=== PATIENT | male | born 1985 | race Two or more races ===

== ENCOUNTER 2017-03-13 08:50 | Inpatient (IN) | payer OTHER ==
[2017-03-13 10:34] VITALS: BMI 28.5
--- NOTE | 2017-03-13 12:11 | HP ---
COWS - Scale Resting Pulse: 0= [place] 80 or Below Sweatin=Flushed/Facial Moisture Restless Observation: 1= Difficult to Sit Still Pupil Size: 2= Moderately Dilated Bone or Joint Aches: 1= Mild Discomfort Runny Nose/ Eye Tearin= Runny Nose/Eyes GI Upset > 30mins: 1= Stomach Cramp Tremor Observation: 2= Slight Tremor Visible Yawning Observation: 1= 1-2x During Session Anxiety or Irritability: 2=Irritable/Anxious Goose Flesh Skin: 0=Smooth Skin COWS Score: 14 Admission ROS S - HPI Chief Complaint: Withdrawal sx. Allergies/Adverse Reactions: Allergies Allergy/AdvReac Type Severity Reaction Status Date / Time No Known Allergies Allergy Verified 03/13/17 10:53 History of Present Illness: 32 y/o man with a long hx. of drug dependence is admitted for detox. Pt. denies previous detox, denies ever being drug free. Exam Limitations: No Limitations - Ebola screening Have you traveled outside of the country in the last 21 days: No (N) Have you had contact with anyone from an Ebola affected area: No Have you been sick,other than usual withdrawal symptoms: No Do you have a fever: No - Review of Systems Constitutional: Diaphoresis EENT: reports: Nose Congestion Respiratory: reports: Cough (off & on) Cardiac: reports: No Symptoms Reported GI: reports: Nausea, Abdominal cramping : reports: No Symptoms Reported Musculoskeletal: reports: Joint Pain Integumentary: reports: Sweating Neuro: reports: Seizure (related to smoking K2), Tremors Endocrine: reports: No Symptoms Reported Hematology: reports: No Symptoms Reported Psychiatric: reports: No Sypmtoms Reported Other Systems: Reviewed and Negative Patient History - Patient Medical History Hx Anemia: No Hx Asthma: No Hx Chronic Obstructive Pulmonary Disease (COPD): No Hx Cancer: No Hx Cardiac Disorders: No Hx Congestive Heart Failure: No Hx Hypertension: No Hx Hypercholesterolemia: No Hx Pacemaker: No HX Cerebrovascular Accident: No Hx Seizures: No Hx Dementia: No Hx Diabetes: No Hx Gastrointestinal Disorders: No Hx Liver Disease: No Hx Genitourinary Disorders: No Hx Sexually Transmitted Disorders: No Hx Renal Disease (ESRD): No Hx Thyroid Disease: No Hx Human Immunodeficiency Virus (HIV): No Hx Hepatitis C: No Hx Depression: Yes Hx Suicide Attempt: No Hx Schizophrenia: Yes - Patient Surgical History Past Surgical History: No - PPD History Previous Implant?: Yes Documented Results: Negative w/o proof Implanted On Prior R Admission?: No PPD to be Administered?: Yes - Smoking Cessation Smoking history: Current every day smoker Have you smoked in the past 12 months: Yes Aproximately how many cigarettes per day: 7 Hx Chewing Tobacco Use: No Initiated information on smoking cessation: Yes 'Breaking Loose' booklet given: 03/13/17 - Substance & Tx. History Hx Alcohol Use: Yes (once a week 3 cans of beer of 12 oz.) Hx Substance Use: Yes Substance Use Type: Cocaine, Heroin, Marijuana Hx Substance Use Treatment: No - Substances Abused Heroin Route: Inhalation Frequency: Daily Amount used: 2 BAGS Age of first use: 29 Date of Last Use: 03/11/17 Crack Route: Smoking Frequency: Daily Amount used: $200 Age of first use: 31 Date of Last Use: 03/12/17 K2 Route: Smoking Frequency: Daily Amount used: 1 blunt Age of first use: 27 Date of Last Use: 03/13/17 Family Disease History - Family Disease History Family History: Denies Admission Physical Exam [facility] - Vital Signs Vital Signs: Vital Signs - 24 hr 03/13/17 10:22 Temperature 97.6 F Pulse Rate 59 L Respiratory 18 Rate Blood Pressure 111/62 - Physical General Appearance: Yes: Tremorous, Irritable, Sweating, Anxious HEENTM: Yes: Nasal Congestion, Rhinorrhea Respiratory: Yes: Chest Non-Tender, Lungs Clear, Normal Breath Sounds Neck: Yes: Supple Breast: Yes: Breast Exam Deferred Cardiology: Yes: Regular Rhythm, Regular Rate, S1, S2 Abdominal: Yes: Normal Bowel Sounds, Non Tender, Soft Genitourinary: Yes: Within Normal Limits Back: Yes: Within Normal Limits Musculoskeletal: Yes: Within Normal Limits Extremities: Yes: Tremors Neurological: Yes: Fully Oriented, Alert Integumentary: Yes: Diaphoresis Lymphatic: Yes: Within Normal Limits - Diagnostic (1) Opioid dependence with withdrawal Current Visit: Yes Status: Acute (2) Cannabis dependence, uncomplicated Current Visit: Yes Status: Acute (3) Cocaine dependence, uncomplicated Current Visit: Yes Status: Acute Cleared for Admission [facility] - Detox or Rehab [facility] Level of Care: Medically Managed Detox Regimen/Protocol: Methadone [facility] Breath Alcohol Content Breath Alcohol Content: 0 Urine Drug Screen - Results Drug Screen Negative: No Urine Drug Screen Results: THC-Marijuana, KAREN-Cocaine, OPI-Opiates
[2017-03-13] MEDS ORDERED: P-EPHED 60MG/TRIPROLIDI 2.5MG TABLET PO PRN (12:20)
[2017-03-13] MEDS ORDERED: MAGNESIUM HYDROX 2400MG/30ML ORAL SUSPENSION 30 ML CUP PO PRN (12:20)
[2017-03-13] MEDS ORDERED: MAGNESIUM CITRATE 300 ML BOTTLE PO PRN (12:20)
[2017-03-13] MEDS ORDERED: IBUPROFEN 400 MG TABLET (FP) PO PRN (12:20)
[2017-03-13] MEDS ORDERED: guaiFENesin/D-METHORPHAN HB 10 ML UNIT-DOSE CUPS PO PRN (12:20)
[2017-03-13] MEDS ORDERED: ACETAMINOPHEN 325 MG TABLET (FP) PO PRN (12:20)
[2017-03-13] MEDS ORDERED: MAG HYDROX/AL HYDROX/SIMETH 30 ML UNIT-DOSE CUP PO PRN (12:20)
[2017-03-13] MEDS ORDERED: MENTHOL/PHENOL 1 EACH UD MM PRN (12:20)
[2017-03-13] MEDS ORDERED: LOPERAMIDE HCL 2 MG CAPSULE PO PRN (12:20)
[2017-03-13] MEDS ORDERED: METHADONE HCL 10 MG TABLET (FOR DETOX USE ONLY) PO ONE ×3 (12:29→23:00)
[2017-03-13] MEDS: NICOTINE 21 MG/24 HOURS TOPICAL PATCH TD SCH (15:45)
[2017-03-13] MEDS: NICOTINE POLACRILEX 2 MG GUM BC PRN (15:54)
[2017-03-13 18:16] LABS: URINE APPEARANCE SLCLOUDY; URINE BILIRUBIN NEGATIVE (NEGATIVE); URINE BLOOD NEGATIVE (NEGATIVE); URINE COLOR DKYELLOW; URINE GLUCOSE (UA) NEGATIVE (NEGATIVE); URINE KETONE NEGATIVE (NEGATIVE); URINE LEUK ESTERASE NEGATIVE (NEGATIVE); URINE NITRITE NEGATIVE (NEGATIVE); URINE PROTEIN NEGATIVE (NEGATIVE)
[2017-03-13] MEDS: diazePAM 5 MG TABLET PO PRN (19:25)
[2017-03-13] MEDS: THIAMINE HCL 100 MG TABLET (FP) PO SCH (22:38)
[2017-03-13 23:04] LABS: URINE LEUK ESTERASE Negative (NEGATIVE)
[2017-03-14] MEDS: diazePAM 5 MG TABLET PO PRN ×4 (03:06→22:34)
[2017-03-14 09:45] LABS: MCH 29.7 pg (25.7-33.7); MEAN CELL VOLUME 87.4 fl (80-96); MEAN PLT VOLUME 10.2 fl (7.5-11.1); PLATELET COUNT 233 K/MM3 (134-434); RDW 13.1 % (11.9-15.9); WHITE BLOOD COUNT 7.3 K/mm3 (4.0-10.0)
[2017-03-14] MEDS ORDERED: METHADONE HCL 10 MG TABLET (FOR DETOX USE ONLY) PO ONE (10:00)
[2017-03-14 10:14] LABS: ALBUMIN 4.2 g/dl (3.4-5.0); ALK PHOS 65 U/L (45-117); ANION GAP 9 (8-16); BILIRUBIN,TOTAL 0.4 mg/dL (0.2-1.0); CALCIUM 8.7 mg/dL (8.5-10.1); CO2 26 mmol/L (21-32); CREATININE 0.9 mg/dL (0.7-1.3); GLUCOSE,RANDOM 91 mg/dL (74-106); SGOT/AST 14 U/L (15-37); SGPT/ALT 25 U/L (12-78); TOT PROT 7.3 g/dl (6.4-8.2)
--- NOTE | 2017-03-14 10:16 | PN ---
BHS COWS - Scale Resting Pulse: 0= [place] 80 or Below Sweatin=Flushed/Facial Moisture Restless Observation: 1= Difficult to Sit Still Pupil Size: 0= Normal to Room Light Bone or Joint Aches: 1= Mild Discomfort Runny Nose/ Eye Tearin= Runny Nose/Eyes GI Upset > 30mins: 2= Nausea/Diarrhea Tremor Observation of Outstretched Hands: 2= Slight Tremor Visible Yawning Observation: 1= 1-2x During Session Anxiety or Irritability: 2=Irritable/Anxious Goose Flesh Skin: 0=Smooth Skin COWS Score: 13 BHS Progress Note (SOAP) Subjective: Anxiety,tremors,sweating,interrupted sleep,restless Objective: 03/14/17 10:11 Vital Signs - 8 hr 03/14/17 03/14/17 03:30 07:14 Temperature 97 F L Pulse Rate 50 L Respiratory 18 16 Rate Blood Pressure 97/51 Laboratory Tests 03/13/17 03/14/17 15:50 06:05 WBC 7.3 RBC 4.82 Hgb 14.3 Hct 42.1 MCV 87.4 MCH 29.7 MCHC 34.0 RDW 13.1 Plt Count 233 MPV 10.2 Urine Color Dkyellow Urine Appearance Slcloudy Urine pH 6.0 Ur Specific [place] 1.027 Urine Protein Negative Urine Glucose (UA) Negative Urine Ketones Negative Urine Blood Negative Urine Nitrite Negative Urine Bilirubin Negative Urine Urobilinogen 2.0 Ur Leukocyte Esterase Negative labs noted Assessment: 03/14/17 10:16 Withdrawal sx. Plan: Continue detox
[2017-03-14] MEDS: PRENATAL VITAMINS W/ FOLIC ACID TABLET (FP) PO SCH (10:53)
[2017-03-14] MEDS: NICOTINE 21 MG/24 HOURS TOPICAL PATCH TD SCH (10:55)
[2017-03-14] MEDS: NICOTINE POLACRILEX 2 MG GUM BC PRN (13:28)
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
[2017-03-14] MEDS: BENZTROPINE MESYLATE 1 MG TABLET (FP) PO SCH (14:48)
[2017-03-14] MEDS ORDERED: carBAMazepine 200 MG TABLET PO SCH (22:00)
[2017-03-14] MEDS: hydrOXYzine PAMOATE 50 MG CAPSULE (FP) PO PRN (22:35)
[2017-03-14] MEDS: THIAMINE HCL 100 MG TABLET (FP) PO SCH (22:35)
[2017-03-15] MEDS: diazePAM 5 MG TABLET PO PRN ×5 (02:52→22:15)
--- NOTE | 2017-03-15 08:36 | EKG ---
Test Reason : Blood Pressure : / mmHG Vent. Rate : 045 BPM Atrial Rate : 045 BPM P-R Int : 134 ms QRS Dur : 092 ms QT Int : 432 ms P-R-T Axes : 054 012 029 degrees QTc Int : 373 ms SINUS BRADYCARDIA WITH SINUS ARRHYTHMIA OTHERWISE NORMAL ECG NO PREVIOUS ECGS AVAILABLE Confirmed by PAULO MILTON MD ([id number]) on 03/15/2017 8:36:01 AM Referred By: Confirmed By:PAULO MILTON MD
[2017-03-15] MEDS ORDERED: carBAMazepine 200 MG TABLET PO SCH (10:00)
[2017-03-15] MEDS ORDERED: METHADONE HCL 5 MG TABLET (FOR DETOX USE ONLY) PO ONE (10:00)
[2017-03-15] MEDS: PRENATAL VITAMINS W/ FOLIC ACID TABLET (FP) PO SCH (10:18)
[2017-03-15] MEDS: BENZTROPINE MESYLATE 1 MG TABLET (FP) PO SCH (10:19)
[2017-03-15] MEDS: NICOTINE 21 MG/24 HOURS TOPICAL PATCH TD SCH (10:20)
--- NOTE | 2017-03-15 12:42 | PN ---
BHS COWS - Scale Resting Pulse: 0= [place] 80 or Below Sweatin= Chills/Flushing Restless Observation: 1= Difficult to Sit Still Pupil Size: 0= Normal to Room Light Bone or Joint Aches: 1= Mild Discomfort Runny Nose/ Eye Tearin= Nasal Congestion GI Upset > 30mins: 1= Stomach Cramp Tremor Observation of Outstretched Hands: 2= Slight Tremor Visible Yawning Observation: 0= None Anxiety or Irritability: 2=Irritable/Anxious Goose Flesh Skin: 0=Smooth Skin COWS Score: 9 BHS Progress Note (SOAP) Subjective: general body ache sweating running nose anxiety Objective: 03/15/17 12:42 Vital Signs Temperature 98 F 03/15/17 10:34 Pulse Rate 59 L 03/15/17 10:34 Respiratory Rate 16 03/15/17 10:34 Blood Pressure 107/54 03/15/17 10:34 O2 Sat by Pulse Oximetry (%) Laboratory Last Values WBC 7.3 K/mm3 (4.0-10.0) 03/14/17 06:05 RBC 4.82 M/mm3 (4.00-5.60) 03/14/17 06:05 Hgb 14.3 GM/dL (11.7-16.9) 03/14/17 06:05 Hct 42.1 % (35.4-49) 03/14/17 06:05 MCV 87.4 fl (80-96) 03/14/17 06:05 MCH 29.7 pg (25.7-33.7) 03/14/17 06:05 MCHC 34.0 g/dl (32.0-35.9) 03/14/17 06:05 RDW 13.1 % (11.9-15.9) 03/14/17 06:05 Plt Count 233 K/MM3 (134-434) 03/14/17 06:05 MPV 10.2 fl (7.5-11.1) 03/14/17 06:05 Sodium 141 mmol/L (136-145) 03/14/17 06:05 Potassium 4.2 mmol/L (3.5-5.1) 03/14/17 06:05 Chloride 106 mmol/L (98-107) 03/14/17 06:05 Carbon Dioxide 26 mmol/L (21-32) 03/14/17 06:05 Anion Gap 9 (8-16) 03/14/17 06:05 BUN 7 mg/dL (7-18) 03/14/17 06:05 Creatinine 0.9 mg/dL (0.7-1.3) 03/14/17 06:05 Creat Clearance w eGFR > 60 (>60) 03/14/17 06:05 Random Glucose 91 mg/dL (74-106) 03/14/17 06:05 Calcium 8.7 mg/dL (8.5-10.1) 03/14/17 06:05 Total Bilirubin 0.4 mg/dL (0.2-1.0) 03/14/17 06:05 AST 14 U/L (15-37) L 03/14/17 06:05 ALT 25 U/L (12-78) 03/14/17 06:05 Alkaline Phosphatase 65 U/L (45-117) 03/14/17 06:05 Total Protein 7.3 g/dl (6.4-8.2) 03/14/17 06:05 Albumin 4.2 g/dl (3.4-5.0) 03/14/17 06:05 Urine Color Dkyellow 03/13/17 15:50 Urine Appearance Slcloudy 03/13/17 15:50 Urine pH 6.0 (5.0-8.0) 03/13/17 15:50 Ur Specific [place] 1.027 (1.001-1.035) 03/13/17 15:50 Urine Protein Negative (NEGATIVE) 03/13/17 15:50 Urine Glucose (UA) Negative (NEGATIVE) 03/13/17 15:50 Urine Ketones Negative (NEGATIVE) 03/13/17 15:50 Urine Blood Negative (NEGATIVE) 03/13/17 15:50 Urine Nitrite Negative (NEGATIVE) 03/13/17 15:50 Urine Bilirubin Negative (NEGATIVE) 03/13/17 15:50 Urine Urobilinogen 2.0 mg/dL (0.2-1.0) 03/13/17 15:50 Ur Leukocyte Esterase Negative (NEGATIVE) 03/13/17 15:50 RPR Titer Nonreactive (NONREACTIVE) 03/14/17 06:05 lab noted Assessment: 03/15/17 12:42 withdrawal sx Plan: continue detox
[2017-03-15] MEDS: THIAMINE HCL 100 MG TABLET (FP) PO SCH (22:14)
[2017-03-15] MEDS: hydrOXYzine PAMOATE 50 MG CAPSULE (FP) PO PRN (22:15)
[2017-03-16] MEDS ORDERED: METHADONE HCL 5 MG TABLET (FOR DETOX USE ONLY) PO ONE (10:00)
[2017-03-16] MEDS: PRENATAL VITAMINS W/ FOLIC ACID TABLET (FP) PO SCH (10:08)
[2017-03-16] MEDS: NICOTINE 21 MG/24 HOURS TOPICAL PATCH TD SCH (10:08)
[2017-03-16] MEDS: BENZTROPINE MESYLATE 1 MG TABLET (FP) PO SCH (10:08)
[2017-03-16] MEDS: diazePAM 5 MG TABLET PO PRN (10:08)
--- NOTE | 2017-03-16 12:06 | PN ---
BHS Progress Note (SOAP) Subjective: body aches muscle cramps sweats Objective: 03/16/17 12:05 Vital Signs Temperature 97.2 F L 03/16/17 10:00 Pulse Rate 65 03/16/17 10:00 Respiratory Rate 20 03/16/17 10:00 Blood Pressure 114/65 03/16/17 10:00 O2 Sat by Pulse Oximetry (%) Laboratory Tests 03/13/17 03/14/17 03/14/17 15:50 06:05 06:05 WBC 7.3 RBC 4.82 Hgb 14.3 Hct 42.1 MCV 87.4 MCH 29.7 MCHC 34.0 RDW 13.1 Plt Count 233 MPV 10.2 Sodium 141 Potassium 4.2 Chloride 106 Carbon Dioxide 26 Anion Gap 9 BUN 7 Creatinine 0.9 Creat Clearance w eGFR > 60 Random Glucose 91 Calcium 8.7 Total Bilirubin 0.4 AST 14 L ALT 25 Alkaline Phosphatase 65 Total Protein 7.3 Albumin 4.2 Urine Color Dkyellow Urine Appearance Slcloudy Urine pH 6.0 Ur Specific [place] 1.027 Urine Protein Negative Urine Glucose (UA) Negative Urine Ketones Negative Urine Blood Negative Urine Nitrite Negative Urine Bilirubin Negative Urine Urobilinogen 2.0 Ur Leukocyte Esterase Negative RPR Titer 03/14/17 06:05 WBC RBC Hgb Hct MCV MCH MCHC RDW Plt Count MPV Sodium Potassium Chloride Carbon Dioxide Anion Gap BUN Creatinine Creat Clearance w eGFR Random Glucose Calcium Total Bilirubin AST ALT Alkaline Phosphatase Total Protein Albumin Urine Color Urine Appearance Urine pH Ur Specific [place] Urine Protein Urine Glucose (UA) Urine Ketones Urine Blood Urine Nitrite Urine Bilirubin Urine Urobilinogen Ur Leukocyte Esterase RPR Titer Nonreactive aaox3 ambulating no acute distress Assessment: 03/16/17 12:05 withdrawals sx Plan: continue detox increase fluids flexiril prn
[2017-03-16] MEDS: hydrOXYzine PAMOATE 50 MG CAPSULE (FP) PO PRN ×3 (13:21→22:37)
[2017-03-16] MEDS: CYCLOBENZAPRINE HCL 10 MG TABLET (FP) PO PRN ×2 (13:21→22:37)
[2017-03-16] MEDS: NICOTINE POLACRILEX 2 MG GUM BC PRN (17:42)
[2017-03-16] MEDS: THIAMINE HCL 100 MG TABLET (FP) PO SCH (22:37)
[2017-03-17] MEDS ORDERED: METHADONE HCL 10 MG TABLET (FOR DETOX USE ONLY) PO ONE (10:00)
[2017-03-17] MEDS: BENZTROPINE MESYLATE 1 MG TABLET (FP) PO SCH (10:14)
[2017-03-17] MEDS: PRENATAL VITAMINS W/ FOLIC ACID TABLET (FP) PO SCH (10:14)
[2017-03-17] MEDS: NICOTINE 21 MG/24 HOURS TOPICAL PATCH TD SCH (10:15)
[2017-03-17] MEDS: CYCLOBENZAPRINE HCL 10 MG TABLET (FP) PO PRN ×2 (10:15→22:32)
--- NOTE | 2017-03-17 12:01 | PN ---
BHS Progress Note (SOAP) Subjective: sweats interrupted sleep Objective: 03/17/17 12:01 Vital Signs Temperature 98.2 F 03/17/17 09:57 Pulse Rate 60 03/17/17 09:57 Respiratory Rate 18 03/17/17 09:57 Blood Pressure 130/60 03/17/17 09:57 O2 Sat by Pulse Oximetry (%) aaox3 ambulating no acute distress Assessment: 03/17/17 12:01 mild withdrawal sx Plan: continue detox increase fluids d/c in am
[2017-03-17 22:19] VITALS: TEMP 97.7
[2017-03-17] MEDS: THIAMINE HCL 100 MG TABLET (FP) PO SCH (22:32)
[2017-03-17] MEDS: hydrOXYzine PAMOATE 50 MG CAPSULE (FP) PO PRN (22:32)
[2017-03-18] MEDS ORDERED: METHADONE HCL 5 MG TABLET (FOR DETOX USE ONLY) PO ONE (06:00)
--- NOTE | 2017-03-18 08:39 | DS ---
[facility] Detox Discharge Summary Admission Date: 03/13/17 Discharge Date: 03/18/17 - History Present History: Cocaine Dependence, Opioid Dependence - Physical Exam Results Vital Signs: Vital Signs Temperature 97.7 F 03/18/17 07:09 Pulse Rate 65 03/18/17 07:09 Respiratory Rate 20 03/18/17 07:09 Blood Pressure 111/70 03/18/17 07:09 O2 Sat by Pulse Oximetry (%) - Treatment Hospital Course: Detox Protocol Followed, Detoxed Safely, Responded well, Discharged Condition Good, Rehab Referral Accepted - Medication Discharge Medications: Ambulatory Orders Benztropine Mesylate [Cogentin -] 1 mg PO DAILY 03/13/17 Carbamazepine [Tegretol -] 200 mg PO DAILY 03/13/17 Carbamazepine [Tegretol -] 300 mg PO HS 03/13/17 Diphenhydramine [Benadryl -] 50 mg PO HS 03/13/17 Benztropine Mesylate [Cogentin -] 1 mg PO DAILY #30 tablet 03/14/17 Fluphenazine HCl 10 mg PO HS #30 tablet 03/14/17 - Diagnosis (1) Cannabis dependence, uncomplicated Current Visit: Yes Status: Chronic (2) Cocaine dependence, uncomplicated Current Visit: Yes Status: Chronic (3) Substance-induced sleep disorder Current Visit: Yes Status: Acute (4) Nicotine dependence Current Visit: Yes Status: Chronic Qualifiers: Nicotine product type: cigarettes Substance use status: uncomplicated Qualified Code(s): F17.210 - Nicotine dependence, cigarettes, uncomplicated (5) Opioid dependence with withdrawal Current Visit: Yes Status: Chronic (6) Schizophrenia Current Visit: Yes Status: Chronic (7) Schizoaffective disorder Current Visit: Yes Status: Ruled-out - AMA Did Patient Leave Against Medical Advice: No
[2017-03-18 09:59] VITALS: BP 127/67; PULSE 62
[2017-03-18] MEDS: PRENATAL VITAMINS W/ FOLIC ACID TABLET (FP) PO SCH (10:15)
[2017-03-18] MEDS: BENZTROPINE MESYLATE 1 MG TABLET (FP) PO SCH (10:15)
[2017-03-18] MEDS: NICOTINE POLACRILEX 2 MG GUM BC PRN (10:16)
[2017-03-18] MEDS: NICOTINE 21 MG/24 HOURS TOPICAL PATCH TD SCH (10:16)
== END 2017-03-18 10:31 | disposition home or self-care (01) | DRG 773 ==
LOC: YASAS 08:50 → Y6N 12:06
PROVIDERS: ADMIT Internal Medicine; ATTEND Internal Medicine
PROC: HZ2ZZZZ Detoxification Services for Substance Abuse Treatment (ICD-10-PCS; principal; 2017-03-13)
DX: F11.23 Opioid dependence with withdrawal (principal); F14.20 Cocaine dependence, uncomplicated; F12.20 Cannabis dependence, uncomplicated; F17.210 Nicotine dependence, cigarettes, uncomplicated; F19.282 Other psychoactive substance dependence with psychoactive substance-induced sleep disorder; F25.9 Schizoaffective disorder, unspecified; Z59.0 Homelessness
CPT/HCPCS: 36415; 80053; 81003; 85027; 86593; 93005; 93010

== ENCOUNTER 2017-04-11 16:30 | Inpatient (IN) | payer OTHER ==
[2017-04-11 17:30] VITALS: BMI 29.0
--- NOTE | 2017-04-11 18:20 | HP ---
CIWA Score - CIWA Score Nausea/Vomitin Muscle Tremors: 3 Anxiety: 3 Agitation: 3 Paroxysmal Sweats: 1-Minimal Palms Moist Orientation: 0-Oriented Tacttile Disturbances: 2-Mild Itch/Numbness/Burn Auditory Disturbances: 2-Mild Harshness/Frighten Visual Disturbances: 0-None Headache: 2-Mild CIWA-Ar Total Score: 19 Admission ROS [facility] - HPI Chief Complaint: i need help to stop drinking alcohol,cocaine and heroin abused Allergies/Adverse Reactions: Allergies Allergy/AdvReac Type Severity Reaction Status Date / Time No Known Allergies Allergy Verified 03/13/17 10:53 History of Present Illness: this 32 years old male with alcohol,cocaine dependence,k2,also heroin dependence ,seeking detox,last treatment 03/13/17 to 03/18/17 syncope nicotine dependence no significant period of sobriety schizophrenia - Ebola screening Have you traveled outside of the country in the last 21 days: No (N) Have you had contact with anyone from an Ebola affected area: No Have you been sick,other than usual withdrawal symptoms: No Do you have a fever: No - Review of Systems Constitutional: Loss of Appetite, Malaise, Night Sweats, Changes in sleep, Weakness EENT: reports: Nose Congestion Respiratory: reports: No Symptoms reported Cardiac: reports: Palpitations GI: reports: Diarrhea, Nausea, Vomiting, Abdominal cramping : reports: No Symptoms Reported Musculoskeletal: reports: Back Pain, Muscle Pain Integumentary: reports: Dryness Neuro: reports: Headache, Tremors Endocrine: reports: No Symptoms Reported Hematology: reports: No Symptoms Reported Psychiatric: reports: other (schizophrenia) Patient History - Patient Medical History Hx Anemia: No Hx Asthma: No Hx Chronic Obstructive Pulmonary Disease (COPD): No Hx Cancer: No Hx Cardiac Disorders: No Hx Congestive Heart Failure: No Hx Hypertension: No Hx Hypercholesterolemia: No Hx Pacemaker: No HX Cerebrovascular Accident: No Hx Seizures: No Hx Dementia: No Hx Diabetes: No Hx Gastrointestinal Disorders: No Hx Liver Disease: No Hx Genitourinary Disorders: No Hx Sexually Transmitted Disorders: No Hx Renal Disease (ESRD): No Hx Thyroid Disease: No Hx Human Immunodeficiency Virus (HIV): No (last 02/20 negative) Hx Hepatitis C: No Hx Depression: Yes Hx Suicide Attempt: No Hx Schizophrenia: Yes Other Medical History: no suicidal,no homicidal - Patient Surgical History Past Surgical History: No - PPD History Previous Implant?: Yes Documented Results: Negative w/proof Implanted On Prior [facility] Admission?: Yes Date: 03/15/17 PPD to be Administered?: No - Smoking Cessation Smoking history: Current every day smoker Have you smoked in the past 12 months: Yes Aproximately how many cigarettes per day: 20 Hx Chewing Tobacco Use: No Initiated information on smoking cessation: Yes 'Breaking Loose' booklet given: 04/18/17 - Substance & Tx. History Hx Alcohol Use: Yes Hx Substance Use: Yes Substance Use Type: Alcohol, Cocaine Hx Substance Use Treatment: Yes ([facility] 03/13/17 t 03/18/17) - Substances Abused Alcohol Route: Oral Frequency: Daily Amount used: 1/2 pint of scotch/6 of 12 ozs of beer Age of first use: 21 Date of Last Use: 04/10/17 Cocaine Route: Smoking Frequency: 3-6 times per week Amount used: 50$ Age of first use: 26 Date of Last Use: 04/11/17 k2 Route: Smoking Frequency: Daily Amount used: 20$ Age of first use: 29 Date of Last Use: 04/11/17 Heroin Route: Inhalation Frequency: 3-6 times per week Amount used: 2BAG Age of first use: 26 Date of Last Use: 04/08/17 Family Disease History - Family Disease History Family History: Denies Admission Physical Exam S - Vital Signs Vital Signs: Vital Signs - 24 hr 04/11/17 17:27 Temperature 98.2 F Pulse Rate 69 Respiratory 18 Rate Blood Pressure 122/63 - Physical General Appearance: Yes: Moderate Distress, Tremorous, Sweating, Anxious HEENTM: Yes: Normal ENT Inspection, ABIOLA, Pharynx Normal Respiratory: Yes: Lungs Clear, Normal Breath Sounds, No Respiratory Distress Neck: Yes: Within Normal Limits, Supple, Trachea in good position Breast: Yes: Within Normal Limits Cardiology: Yes: Within Normal Limits, Regular Rhythm, Regular Rate, S1, S2 Abdominal: Yes: Normal Bowel Sounds, Non Tender, Soft, Organomegaly Genitourinary: Yes: Within Normal Limits Back: Yes: Muscle Spasm Musculoskeletal: Yes: full range of Motion, Back pain, Muscle Pain Extremities: Yes: Tremors Neurological: Yes: production engineer track II-XII NML intact, Fully Oriented, Alert, Motor Strength 5/5 Integumentary: Yes: Dry Lymphatic: Yes: Within Normal Limits - Diagnostic (1) Alcohol dependence with uncomplicated withdrawal Current Visit: Yes Status: Acute (2) Cannabis dependence, uncomplicated Current Visit: No Status: Chronic (3) Cocaine dependence, uncomplicated Current Visit: No Status: Chronic (4) Nicotine dependence Current Visit: No Status: Chronic Qualifiers: Nicotine product type: cigarettes Substance use status: uncomplicated Qualified Code(s): F17.210 - Nicotine dependence, cigarettes, uncomplicated (5) Opioid dependence Current Visit: Yes Status: Acute (6) Syncope Current Visit: Yes Status: Acute (7) Schizophrenia Current Visit: No Status: Chronic Cleared for Admission [facility] - Detox or Rehab [facility] Level of Care: Medically Managed Detox Regimen/Protocol: Librium (patient urine showed negative for opiate, patient is awared he will get methadone detox,) [facility] Breath Alcohol Content Breath Alcohol Content: 0 Urine Drug Screen - Results Drug Screen Negative: No Urine Drug Screen Results: KAREN-Cocaine
[2017-04-11] MEDS ORDERED: chlordiazePOXIDE HCL 25 MG CAPSULE PO PRN (18:34)
[2017-04-11] MEDS ORDERED: LOPERAMIDE HCL 2 MG CAPSULE PO PRN (18:34)
[2017-04-11] MEDS ORDERED: MAG HYDROX/AL HYDROX/SIMETH 30 ML UNIT-DOSE CUP PO PRN (18:34)
[2017-04-11] MEDS ORDERED: NICOTINE POLACRILEX 2 MG GUM BC PRN (18:34)
[2017-04-11] MEDS ORDERED: hydrOXYzine PAMOATE 50 MG CAPSULE (FP) PO PRN (18:34)
[2017-04-11] MEDS ORDERED: MENTHOL/PHENOL 1 EACH UD MM PRN (18:34)
[2017-04-11] MEDS ORDERED: IBUPROFEN 400 MG TABLET (FP) PO PRN (18:34)
[2017-04-11] MEDS ORDERED: ACETAMINOPHEN 325 MG TABLET (FP) PO PRN (18:34)
[2017-04-11] MEDS ORDERED: chlordiazePOXIDE HCL 25 MG CAPSULE PO ONE (18:34)
[2017-04-11] MEDS ORDERED: MAGNESIUM CITRATE 300 ML BOTTLE PO PRN (18:34)
[2017-04-11] MEDS ORDERED: MAGNESIUM HYDROX 2400MG/30ML ORAL SUSPENSION 30 ML CUP PO PRN (18:34)
[2017-04-11] MEDS ORDERED: guaiFENesin/D-METHORPHAN HB 10 ML UNIT-DOSE CUPS PO PRN (18:34)
[2017-04-11] MEDS ORDERED: P-EPHED 60MG/TRIPROLIDI 2.5MG TABLET PO PRN (18:34)
[2017-04-11] MEDS ORDERED: CYCLOBENZAPRINE HCL 10 MG TABLET (FP) PO PRN (18:38)
[2017-04-11 22:11] LABS: URINE APPEARANCE CLEAR; URINE BILIRUBIN NEGATIVE (NEGATIVE); URINE BLOOD NEGATIVE (NEGATIVE); URINE COLOR YELLOW; URINE GLUCOSE (UA) NEGATIVE (NEGATIVE); URINE KETONE NEGATIVE (NEGATIVE); URINE LEUK ESTERASE NEGATIVE (NEGATIVE); URINE NITRITE NEGATIVE (NEGATIVE); URINE PROTEIN NEGATIVE (NEGATIVE); URINE UROBILINOGEN NEGATIVE mg/dL (0.2-1.0)
[2017-04-11] MEDS: cloNIDine HCL 0.1 MG TABLET PO SCH (22:35)
[2017-04-11] MEDS: chlordiazePOXIDE HCL 25 MG CAPSULE PO SCH (22:35)
[2017-04-11] MEDS: THIAMINE HCL 100 MG TABLET (FP) PO SCH (22:35)
[2017-04-12] MEDS: chlordiazePOXIDE HCL 25 MG CAPSULE PO SCH ×4 (06:19→22:16)
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
[2017-04-12] MEDS ORDERED: FLUPHENAZINE HCL 10 MG PO SCH (10:00)
[2017-04-12] MEDS: PRENATAL VITAMINS W/ FOLIC ACID TABLET (FP) PO SCH (10:21)
[2017-04-12] MEDS: cloNIDine HCL 0.1 MG TABLET PO SCH ×2 (10:22→22:16)
[2017-04-12 10:23] LABS: ALBUMIN 3.7 g/dl (3.4-5.0); ALK PHOS 59 U/L (45-117); ANION GAP 9 (8-16); BILIRUBIN,TOTAL 0.2 mg/dL (0.2-1.0); BLOOD UREA NITROGEN 7 mg/dL (7-18); CALCIUM 8.6 mg/dL (8.5-10.1); CHLORIDE 106 mmol/L (98-107); CO2 27 mmol/L (21-32); CREATININE 0.9 mg/dL (0.7-1.3); GLUCOSE,RANDOM 97 mg/dL (74-106); HEMATOCRIT 40.8 % (35.4-49); HEMOGLOBIN 13.7 GM/dL (11.7-16.9); MCH 29.5 pg (25.7-33.7); MCHC 33.6 g/dl (32.0-35.9); MEAN CELL VOLUME 87.8 fl (80-96); MEAN PLT VOLUME 8.7 fl (7.5-11.1); PLATELET COUNT 173 K/MM3 (134-434); POTASSIUM 3.8 mmol/L (3.5-5.1); RBC 4.64 M/mm3 (4.00-5.60); RDW 13.1 % (11.9-15.9); SGOT/AST 14 U/L (15-37); SGPT/ALT 19 U/L (12-78); SODIUM 142 mmol/L (136-145); TOT PROT 6.4 g/dl (6.4-8.2); WHITE BLOOD COUNT 5.7 K/mm3 (4.0-10.0)
--- NOTE | 2017-04-12 11:37 | EKG ---
Test Reason : Blood Pressure : / mmHG Vent. Rate : 052 BPM Atrial Rate : 052 BPM P-R Int : 134 ms QRS Dur : 100 ms QT Int : 426 ms P-R-T Axes : 059 027 021 degrees QTc Int : 396 ms SINUS BRADYCARDIA WHEN COMPARED WITH ECG OF 13-MAR-2017 15:35, NO SIGNIFICANT CHANGE WAS FOUND Confirmed by JAC KING MD ([id number]) on 04/12/2017 11:37:12 AM Referred By: Confirmed By:JAC KING MD
[2017-04-12] MEDS ORDERED: PNEUMOCOCCAL 23 VACCINE 0.5 ML VIAL IM ONE (12:00)
[2017-04-12] MEDS ORDERED: PNEUMOC 13-VAL CONJ-DIP CRM/PF 0.5 ML DISP.SYRIN IM ONE (12:00)
[2017-04-12] MEDS: BENZTROPINE MESYLATE 1 MG TABLET (FP) PO SCH (12:05)
--- NOTE | 2017-04-12 15:07 | PN ---
[facility] CIWA - CIWA Score Nausea/Vomitin-Mild Nausea/No Vomiting Muscle Tremors: 3 Anxiety: 4-Mod. Anxious/Guarded Agitation: 3 Paroxysmal Sweats: 3 Orientation: 0-Oriented Tacttile Disturbances: 0-None Auditory Disturbances: 0-None Visual Disturbances: 0-None Headache: 0-None Present CIWA-Ar Total Score: 14 S Progress Note (SOAP) Subjective: Anxiety,tremors,sweating,interrupted sleep,restless Objective: 04/12/17 15:06 Vital Signs - 8 hr 04/12/17 04/12/17 09:49 14:28 Temperature 96.3 F L 97.5 F L Pulse Rate 57 L 61 Respiratory 16 16 Rate Blood Pressure 110/57 117/63 Laboratory Last Values WBC 5.7 K/mm3 (4.0-10.0) 04/12/17 07:40 RBC 4.64 M/mm3 (4.00-5.60) 04/12/17 07:40 Hgb 13.7 GM/dL (11.7-16.9) 04/12/17 07:40 Hct 40.8 % (35.4-49) 04/12/17 07:40 MCV 87.8 fl (80-96) 04/12/17 07:40 MCH 29.5 pg (25.7-33.7) 04/12/17 07:40 MCHC 33.6 g/dl (32.0-35.9) 04/12/17 07:40 RDW 13.1 % (11.9-15.9) 04/12/17 07:40 Plt Count 173 K/MM3 (134-434) D 04/12/17 07:40 MPV 8.7 fl (7.5-11.1) D 04/12/17 07:40 Sodium 142 mmol/L (136-145) 04/12/17 07:40 Potassium 3.8 mmol/L (3.5-5.1) 04/12/17 07:40 Chloride 106 mmol/L (98-107) 04/12/17 07:40 Carbon Dioxide 27 mmol/L (21-32) 04/12/17 07:40 Anion Gap 9 (8-16) 04/12/17 07:40 BUN 7 mg/dL (7-18) 04/12/17 07:40 Creatinine 0.9 mg/dL (0.7-1.3) 04/12/17 07:40 Creat Clearance w eGFR > 60 (>60) 04/12/17 07:40 Random Glucose 97 mg/dL (74-106) 04/12/17 07:40 Calcium 8.6 mg/dL (8.5-10.1) 04/12/17 07:40 Total Bilirubin 0.2 mg/dL (0.2-1.0) D 04/12/17 07:40 AST 14 U/L (15-37) L 04/12/17 07:40 ALT 19 U/L (12-78) D 04/12/17 07:40 Alkaline Phosphatase 59 U/L (45-117) 04/12/17 07:40 Total Protein 6.4 g/dl (6.4-8.2) 04/12/17 07:40 Albumin 3.7 g/dl (3.4-5.0) 04/12/17 07:40 Urine Color Yellow 04/11/17 21:00 Urine Appearance Clear 04/11/17 21:00 Urine pH 7.0 (5.0-8.0) 04/11/17 21:00 Ur Specific [place] 1.015 (1.001-1.035) 04/11/17 21:00 Urine Protein Negative (NEGATIVE) 04/11/17 21:00 Urine Glucose (UA) Negative (NEGATIVE) 04/11/17 21:00 Urine Ketones Negative (NEGATIVE) 04/11/17 21:00 Urine Blood Negative (NEGATIVE) 04/11/17 21:00 Urine Nitrite Negative (NEGATIVE) 04/11/17 21:00 Urine Bilirubin Negative (NEGATIVE) 04/11/17 21:00 Urine Urobilinogen Negative mg/dL (0.2-1.0) 04/11/17 21:00 Ur Leukocyte Esterase Negative (NEGATIVE) 04/11/17 21:00 RPR Titer Nonreactive (NONREACTIVE) 04/12/17 07:40 HIV 1&2 Antibody Screen Negative 04/12/17 07:40 HIV P24 Antigen Negative 04/12/17 07:40 labs noted Assessment: 04/12/17 15:07 Withdrawal sx. Plan: Continue detox
[2017-04-12] MEDS: ZOLPIDEM TARTRATE 5 MG TABLET PO PRN (22:16)
[2017-04-12] MEDS: THIAMINE HCL 100 MG TABLET (FP) PO SCH (22:16)
[2017-04-13] MEDS: chlordiazePOXIDE HCL 25 MG CAPSULE PO SCH ×3 (05:47→17:24)
[2017-04-13] MEDS: cloNIDine HCL 0.1 MG TABLET PO SCH ×2 (10:25→22:39)
[2017-04-13] MEDS: BENZTROPINE MESYLATE 1 MG TABLET (FP) PO SCH (10:25)
[2017-04-13] MEDS: PRENATAL VITAMINS W/ FOLIC ACID TABLET (FP) PO SCH (10:25)
--- NOTE | 2017-04-13 11:38 | PN ---
[facility] CIWA - CIWA Score Nausea/Vomitin-No Nausea/No Vomiting Muscle Tremors: 3 Anxiety: 4-Mod. Anxious/Guarded Agitation: 3 Paroxysmal Sweats: 1-Minimal Palms Moist Orientation: 0-Oriented Tacttile Disturbances: 2-Mild Itch/Numbness/Burn Auditory Disturbances: 0-None Visual Disturbances: 0-None Headache: 0-None Present CIWA-Ar Total Score: 13 BHS Progress Note (SOAP) Subjective: SLIGHT ANXIETY,TREMORS,SWEATS. Objective: 04/13/17 11:38 Vital Signs Temperature 97.1 F L 04/13/17 10:06 Pulse Rate 62 04/13/17 10:06 Respiratory Rate 20 04/13/17 10:06 Blood Pressure 110/65 04/13/17 10:06 O2 Sat by Pulse Oximetry (%) Laboratory Last Values WBC 5.7 K/mm3 (4.0-10.0) 04/12/17 07:40 RBC 4.64 M/mm3 (4.00-5.60) 04/12/17 07:40 Hgb 13.7 GM/dL (11.7-16.9) 04/12/17 07:40 Hct 40.8 % (35.4-49) 04/12/17 07:40 MCV 87.8 fl (80-96) 04/12/17 07:40 MCH 29.5 pg (25.7-33.7) 04/12/17 07:40 MCHC 33.6 g/dl (32.0-35.9) 04/12/17 07:40 RDW 13.1 % (11.9-15.9) 04/12/17 07:40 Plt Count 173 K/MM3 (134-434) D 04/12/17 07:40 MPV 8.7 fl (7.5-11.1) D 04/12/17 07:40 Sodium 142 mmol/L (136-145) 04/12/17 07:40 Potassium 3.8 mmol/L (3.5-5.1) 04/12/17 07:40 Chloride 106 mmol/L (98-107) 04/12/17 07:40 Carbon Dioxide 27 mmol/L (21-32) 04/12/17 07:40 Anion Gap 9 (8-16) 04/12/17 07:40 BUN 7 mg/dL (7-18) 04/12/17 07:40 Creatinine 0.9 mg/dL (0.7-1.3) 04/12/17 07:40 Creat Clearance w eGFR > 60 (>60) 04/12/17 07:40 Random Glucose 97 mg/dL (74-106) 04/12/17 07:40 Calcium 8.6 mg/dL (8.5-10.1) 04/12/17 07:40 Total Bilirubin 0.2 mg/dL (0.2-1.0) D 04/12/17 07:40 AST 14 U/L (15-37) L 04/12/17 07:40 ALT 19 U/L (12-78) D 04/12/17 07:40 Alkaline Phosphatase 59 U/L (45-117) 04/12/17 07:40 Total Protein 6.4 g/dl (6.4-8.2) 04/12/17 07:40 Albumin 3.7 g/dl (3.4-5.0) 04/12/17 07:40 Urine Color Yellow 04/11/17 21:00 Urine Appearance Clear 04/11/17 21:00 Urine pH 7.0 (5.0-8.0) 04/11/17 21:00 Ur Specific [place] 1.015 (1.001-1.035) 04/11/17 21:00 Urine Protein Negative (NEGATIVE) 04/11/17 21:00 Urine Glucose (UA) Negative (NEGATIVE) 04/11/17 21:00 Urine Ketones Negative (NEGATIVE) 04/11/17 21:00 Urine Blood Negative (NEGATIVE) 04/11/17 21:00 Urine Nitrite Negative (NEGATIVE) 04/11/17 21:00 Urine Bilirubin Negative (NEGATIVE) 04/11/17 21:00 Urine Urobilinogen Negative mg/dL (0.2-1.0) 04/11/17 21:00 Ur Leukocyte Esterase Negative (NEGATIVE) 04/11/17 21:00 RPR Titer Nonreactive (NONREACTIVE) 04/12/17 07:40 HIV 1&2 Antibody Screen Negative 04/12/17 07:40 HIV P24 Antigen Negative 04/12/17 07:40 Assessment: 04/13/17 11:38 WITHDRAWAL SX Plan: CONTINUE DETOX
[2017-04-13] MEDS: THIAMINE HCL 100 MG TABLET (FP) PO SCH (22:39)
[2017-04-13] MEDS: chlordiazePOXIDE 5 MG CAPSULE PO SCH (22:39)
[2017-04-13] MEDS: ZOLPIDEM TARTRATE 5 MG TABLET PO PRN (22:40)
[2017-04-14] MEDS: chlordiazePOXIDE 5 MG CAPSULE PO SCH ×2 (06:09→10:28)
[2017-04-14 09:59] VITALS: BP 108/62; PULSE 52
[2017-04-14] MEDS: cloNIDine HCL 0.1 MG TABLET PO SCH (10:27)
[2017-04-14] MEDS: PRENATAL VITAMINS W/ FOLIC ACID TABLET (FP) PO SCH (10:27)
[2017-04-14] MEDS: BENZTROPINE MESYLATE 1 MG TABLET (FP) PO SCH (10:29)
--- NOTE | 2017-04-14 11:00 | PN ---
BHS Progress Note (SOAP) Subjective: ANXIETY,NIGHT SWEATS,FATIGUE. Objective: 04/14/17 10:59 Vital Signs Temperature 98.5 F 04/14/17 09:58 Pulse Rate 52 L 04/14/17 09:58 Respiratory Rate 19 04/14/17 09:58 Blood Pressure 108/62 04/14/17 09:58 O2 Sat by Pulse Oximetry (%) Laboratory Last Values WBC 5.7 K/mm3 (4.0-10.0) 04/12/17 07:40 RBC 4.64 M/mm3 (4.00-5.60) 04/12/17 07:40 Hgb 13.7 GM/dL (11.7-16.9) 04/12/17 07:40 Hct 40.8 % (35.4-49) 04/12/17 07:40 MCV 87.8 fl (80-96) 04/12/17 07:40 MCH 29.5 pg (25.7-33.7) 04/12/17 07:40 MCHC 33.6 g/dl (32.0-35.9) 04/12/17 07:40 RDW 13.1 % (11.9-15.9) 04/12/17 07:40 Plt Count 173 K/MM3 (134-434) D 04/12/17 07:40 MPV 8.7 fl (7.5-11.1) D 04/12/17 07:40 Sodium 142 mmol/L (136-145) 04/12/17 07:40 Potassium 3.8 mmol/L (3.5-5.1) 04/12/17 07:40 Chloride 106 mmol/L (98-107) 04/12/17 07:40 Carbon Dioxide 27 mmol/L (21-32) 04/12/17 07:40 Anion Gap 9 (8-16) 04/12/17 07:40 BUN 7 mg/dL (7-18) 04/12/17 07:40 Creatinine 0.9 mg/dL (0.7-1.3) 04/12/17 07:40 Creat Clearance w eGFR > 60 (>60) 04/12/17 07:40 Random Glucose 97 mg/dL (74-106) 04/12/17 07:40 Calcium 8.6 mg/dL (8.5-10.1) 04/12/17 07:40 Total Bilirubin 0.2 mg/dL (0.2-1.0) D 04/12/17 07:40 AST 14 U/L (15-37) L 04/12/17 07:40 ALT 19 U/L (12-78) D 04/12/17 07:40 Alkaline Phosphatase 59 U/L (45-117) 04/12/17 07:40 Total Protein 6.4 g/dl (6.4-8.2) 04/12/17 07:40 Albumin 3.7 g/dl (3.4-5.0) 04/12/17 07:40 Urine Color Yellow 04/11/17 21:00 Urine Appearance Clear 04/11/17 21:00 Urine pH 7.0 (5.0-8.0) 04/11/17 21:00 Ur Specific [place] 1.015 (1.001-1.035) 04/11/17 21:00 Urine Protein Negative (NEGATIVE) 04/11/17 21:00 Urine Glucose (UA) Negative (NEGATIVE) 04/11/17 21:00 Urine Ketones Negative (NEGATIVE) 04/11/17 21:00 Urine Blood Negative (NEGATIVE) 04/11/17 21:00 Urine Nitrite Negative (NEGATIVE) 04/11/17 21:00 Urine Bilirubin Negative (NEGATIVE) 04/11/17 21:00 Urine Urobilinogen Negative mg/dL (0.2-1.0) 04/11/17 21:00 Ur Leukocyte Esterase Negative (NEGATIVE) 04/11/17 21:00 RPR Titer Nonreactive (NONREACTIVE) 04/12/17 07:40 HIV 1&2 Antibody Screen Negative 04/12/17 07:40 HIV P24 Antigen Negative 04/12/17 07:40 Assessment: 04/14/17 10:59 WITHDRAWAL SX Plan: CONTINUE DETOX
[2017-04-14 13:48] VITALS: TEMP 97.5
--- NOTE | 2017-04-14 13:57 | DS ---
[facility] Detox Discharge Summary Admission Date: 04/11/17 Discharge Date: 04/14/17 - History Present History: Alcohol Dependence, Cocaine Dependence Additional Comments: PT DECLINED TO CONTINUE WITH DETOX FOR PERSONAL REASONS STATING HE DOES NOT WANT TO BE HERE. Pertinent Past History: PSYCH HX - Physical Exam Results Vital Signs: Vital Signs Temperature 97.5 F L 04/14/17 13:48 Pulse Rate 52 L 04/14/17 13:48 Respiratory Rate 19 04/14/17 13:48 Blood Pressure 108/62 04/14/17 13:48 O2 Sat by Pulse Oximetry (%) Pertinent Admission Physical Exam Findings: WITHDRAWAL SX Laboratory Last Values WBC 5.7 K/mm3 (4.0-10.0) 04/12/17 07:40 RBC 4.64 M/mm3 (4.00-5.60) 04/12/17 07:40 Hgb 13.7 GM/dL (11.7-16.9) 04/12/17 07:40 Hct 40.8 % (35.4-49) 04/12/17 07:40 MCV 87.8 fl (80-96) 04/12/17 07:40 MCH 29.5 pg (25.7-33.7) 04/12/17 07:40 MCHC 33.6 g/dl (32.0-35.9) 04/12/17 07:40 RDW 13.1 % (11.9-15.9) 04/12/17 07:40 Plt Count 173 K/MM3 (134-434) D 04/12/17 07:40 MPV 8.7 fl (7.5-11.1) D 04/12/17 07:40 Sodium 142 mmol/L (136-145) 04/12/17 07:40 Potassium 3.8 mmol/L (3.5-5.1) 04/12/17 07:40 Chloride 106 mmol/L (98-107) 04/12/17 07:40 Carbon Dioxide 27 mmol/L (21-32) 04/12/17 07:40 Anion Gap 9 (8-16) 04/12/17 07:40 BUN 7 mg/dL (7-18) 04/12/17 07:40 Creatinine 0.9 mg/dL (0.7-1.3) 04/12/17 07:40 Creat Clearance w eGFR > 60 (>60) 04/12/17 07:40 Random Glucose 97 mg/dL (74-106) 04/12/17 07:40 Calcium 8.6 mg/dL (8.5-10.1) 04/12/17 07:40 Total Bilirubin 0.2 mg/dL (0.2-1.0) D 04/12/17 07:40 AST 14 U/L (15-37) L 04/12/17 07:40 ALT 19 U/L (12-78) D 04/12/17 07:40 Alkaline Phosphatase 59 U/L (45-117) 04/12/17 07:40 Total Protein 6.4 g/dl (6.4-8.2) 04/12/17 07:40 Albumin 3.7 g/dl (3.4-5.0) 04/12/17 07:40 Urine Color Yellow 04/11/17 21:00 Urine Appearance Clear 04/11/17 21:00 Urine pH 7.0 (5.0-8.0) 04/11/17 21:00 Ur Specific [place] 1.015 (1.001-1.035) 04/11/17 21:00 Urine Protein Negative (NEGATIVE) 04/11/17 21:00 Urine Glucose (UA) Negative (NEGATIVE) 04/11/17 21:00 Urine Ketones Negative (NEGATIVE) 04/11/17 21:00 Urine Blood Negative (NEGATIVE) 04/11/17 21:00 Urine Nitrite Negative (NEGATIVE) 04/11/17 21:00 Urine Bilirubin Negative (NEGATIVE) 04/11/17 21:00 Urine Urobilinogen Negative mg/dL (0.2-1.0) 04/11/17 21:00 Ur Leukocyte Esterase Negative (NEGATIVE) 04/11/17 21:00 RPR Titer Nonreactive (NONREACTIVE) 04/12/17 07:40 HIV 1&2 Antibody Screen Negative 04/12/17 07:40 HIV P24 Antigen Negative 04/12/17 07:40 - Treatment Hospital Course: Discharged Condition Good - Medication Discharge Medications: Ambulatory Orders Carbamazepine [Tegretol -] 200 mg PO DAILY 03/13/17 Carbamazepine [Tegretol -] 300 mg PO HS 03/13/17 Diphenhydramine [Benadryl -] 50 mg PO HS 03/13/17 Benztropine Mesylate [Cogentin -] 1 mg PO DAILY #30 mg 04/12/17 Fluphenazine HCl 10 mg PO HS #30 tablet 04/12/17 - Diagnosis (1) Alcohol dependence with uncomplicated withdrawal Current Visit: Yes Status: Acute (2) Cocaine dependence, uncomplicated Current Visit: Yes Status: Acute (3) Nicotine dependence Current Visit: Yes Status: Acute Qualifiers: Nicotine product type: cigarettes Substance use status: in withdrawal Qualified Code(s): F17.213 - Nicotine dependence, cigarettes, with withdrawal (4) Substance induced mood disorder Current Visit: Yes Status: Acute (5) Substance-induced sleep disorder Current Visit: Yes Status: Acute - AMA Did Patient Leave Against Medical Advice: Yes (AMA)
[2017-04-14] MEDS ORDERED: chlordiazePOXIDE HCL 10 MG CAPSULE PO SCH (23:00)
== END 2017-04-14 14:03 | disposition left against medical advice (07) | DRG 770 ==
LOC: YASAS 16:30 → Y3N 18:30
PROVIDERS: ADMIT Internal Medicine; ATTEND Internal Medicine
PROC: HZ2ZZZZ Detoxification Services for Substance Abuse Treatment (ICD-10-PCS; principal; 2017-04-11)
DX: F11.20 Opioid dependence, uncomplicated (principal); F10.230 Alcohol dependence with withdrawal, uncomplicated; F14.20 Cocaine dependence, uncomplicated; F12.20 Cannabis dependence, uncomplicated; F17.213 Nicotine dependence, cigarettes, with withdrawal; F19.24 Other psychoactive substance dependence with psychoactive substance-induced mood disorder; F19.282 Other psychoactive substance dependence with psychoactive substance-induced sleep disorder; F25.9 Schizoaffective disorder, unspecified; F32.9 Major depressive disorder, single episode, unspecified
CPT/HCPCS: 36415; 80053; 81003; 85027; 86593; 87389; 93005; 93010

== ENCOUNTER 2017-05-22 19:33 | Inpatient (IN) | payer SELFPAY ==
[2017-05-22 21:07] VITALS: BMI 29.8
--- NOTE | 2017-05-22 22:57 | HP ---
CIWA Score - CIWA Score Nausea/Vomitin Muscle Tremors: 2 Anxiety: 3 Agitation: 2 Paroxysmal Sweats: 2 Orientation: 0-Oriented Tacttile Disturbances: 0-None Auditory Disturbances: 0-None Visual Disturbances: 0-None Headache: 2-Mild CIWA-Ar Total Score: 13 Admission ROS BHS - HPI Chief Complaint: WITHDRAWAL SYMPTOMS Allergies/Adverse Reactions: Allergies Allergy/AdvReac Type Severity Reaction Status Date / Time No Known Allergies Allergy Verified 05/22/17 22:22 History of Present Illness: 32 Y.O. MAN WITH HISTORY OF ALCOHOL AND K2 DEPENDENCE IS HERE FOR DETOX. HE WAS LAST HERE IN April, BUT LEFT AMA. DOES NOT HAVE A SIGNIFICANT PERIOD OF SOBRIETY. REPORTS H/O SUICIDAL IDEATION; ATTEMPTED TO JUMP OFF [facility] 2 WEEKS PRIOR. STATES HE SPENT 10 DAYS AT [facility] IN [place], [place] FOR TREATMENT OF SCHIZOPHRENIA PSYCHOSIS. CURRENTLY DENIES SI/HI. Exam Limitations: Intoxication - Ebola screening Have you traveled outside of the country in the last 21 days: No Have you been sick,other than usual withdrawal symptoms: No - Review of Systems Constitutional: Chills, Loss of Appetite, Night Sweats EENT: reports: Blurred Vision, Double Vision, Tearing Respiratory: reports: No Symptoms reported Cardiac: reports: Lightheadedness GI: reports: Diarrhea, Poor Appetite : reports: No Symptoms Reported Musculoskeletal: reports: Back Pain Integumentary: reports: No Symptoms Reported Neuro: reports: Seizure (LAST 1 MONTH AGO) Endocrine: reports: No Symptoms Reported Hematology: reports: No Symptoms Reported Psychiatric: reports: Orientated x3, Depressed, other (SCHIZOPHRENIA) Other Systems: Reviewed and Negative Patient History - Patient Medical History Hx Anemia: No Hx Asthma: No Hx Chronic Obstructive Pulmonary Disease (COPD): No Hx Cancer: No Hx Cardiac Disorders: No Hx Congestive Heart Failure: No Hx Hypertension: No Hx Hypercholesterolemia: No Hx Pacemaker: No HX Cerebrovascular Accident: No Hx Seizures: No Hx Dementia: No Hx Diabetes: No Hx Gastrointestinal Disorders: No Hx Liver Disease: No Hx Genitourinary Disorders: No Hx Sexually Transmitted Disorders: No Hx Renal Disease (ESRD): No Hx Thyroid Disease: No Hx Human Immunodeficiency Virus (HIV): No (last 02/20 negative) Hx Hepatitis C: No Hx Depression: Yes Hx Suicide Attempt: Yes (2 WEEKS: ATTEMPTED TO JUMP OFF [facility] ) Hx Schizophrenia: Yes - Patient Surgical History Past Surgical History: No Hx Neurologic Surgery: No Hx Cataract Extraction: No Hx Cardiac Surgery: No Hx Lung Surgery: No Hx Breast Surgery: No Hx Breast Biopsy: No Hx Abdominal Surgery: No Hx Appendectomy: No Hx Cholecystectomy: No Hx Genitourinary Surgery: No Hx Section: No Hx Orthopedic Surgery: No Anesthesia Reaction: No - PPD History Previous Implant?: Yes Documented Results: Negative w/proof Implanted On Prior [facility] Admission?: Yes Date: 03/15/17 Results: 0 PPD to be Administered?: No - Reproductive History Patient is a Female of Child Bearing Age (11 -55 yrs old): No - Smoking Cessation Smoking history: Current every day smoker Have you smoked in the past 12 months: Yes Aproximately how many cigarettes per day: 5 Hx Chewing Tobacco Use: No Initiated information on smoking cessation: Yes 'Breaking Loose' booklet given: 05/22/17 - Substance & Tx. History Hx Alcohol Use: Yes Hx Substance Use: Yes (K2) Substance Use Type: Alcohol Hx Substance Use Treatment: Yes - Substances Abused Alcohol Route: Oral Frequency: Daily Amount used: liquor- 2 pints, beer- 1 six pack Age of first use: 21 Date of Last Use: 05/22/17 Family Disease History - Family Disease History Family Disease History: Diabetes: Grandparent, Heart Disease: Grandparent Admission Physical Exam BHS - Vital Signs Vital Signs: Vital Signs - 24 hr 05/22/17 21:05 Temperature 97.1 F L Pulse Rate 56 L Respiratory 19 Rate Blood Pressure 122/70 - Physical General Appearance: Yes: Sweating, Anxious HEENTM: Yes: Hearing grossly Normal, Normal ENT Inspection, Normocephalic, Normal Voice Respiratory: Yes: Chest Non-Tender, Lungs Clear, Normal Breath Sounds, No Respiratory Distress, No Accessory Muscle Use Neck: Yes: No masses,lesions,Nodules, Trachea in good position Breast: Yes: Breast Exam Deferred Cardiology: Yes: Regular Rhythm, Regular Rate Abdominal: Yes: Normal Bowel Sounds, Non Tender, Flat Genitourinary: Yes: Other (NO COMPLAINTS REPORTED) Back: Yes: Normal Inspection Musculoskeletal: Yes: full range of Motion, Gait Steady Extremities: Yes: Normal Capillary Refill, Normal Inspection, Normal Range of Motion, Non-Tender Neurological: Yes: 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 II-XII NML intact, Fully Oriented, Alert, Normal Mood/ Affect, Normal Response Integumentary: Yes: Normal Color, Dry, Warm Lymphatic: Yes: Within Normal Limits - Diagnostic (1) Alcohol dependence with uncomplicated withdrawal Current Visit: Yes Status: Chronic (2) Nicotine dependence Current Visit: Yes Status: Chronic Qualifiers: Nicotine product type: cigarettes Substance use status: in withdrawal Qualified Code(s): F17.213 - Nicotine dependence, cigarettes, with withdrawal (3) Syncope Current Visit: No Status: Acute Cleared for Admission [facility] - Detox or Rehab [facility] Level of Care: Medically Managed Detox Regimen/Protocol: Librium [facility] Breath Alcohol Content Breath Alcohol Content: 0.019 Urine Drug Screen - Results Drug Screen Negative: No Urine Drug Screen Results: THC-Marijuana, PCP-Phencyclidine
[2017-05-22] MEDS ORDERED: MAG HYDROX/AL HYDROX/SIMETH 30 ML UNIT-DOSE CUP PO PRN (23:11)
[2017-05-22] MEDS ORDERED: IBUPROFEN 400 MG TABLET (FP) PO PRN (23:11)
[2017-05-22] MEDS ORDERED: guaiFENesin/D-METHORPHAN HB 10 ML UNIT-DOSE CUPS PO PRN (23:11)
[2017-05-22] MEDS ORDERED: chlordiazePOXIDE HCL 25 MG CAPSULE PO ONE (23:11)
[2017-05-22] MEDS ORDERED: MAGNESIUM CITRATE 300 ML BOTTLE PO PRN (23:11)
[2017-05-22] MEDS ORDERED: MAGNESIUM HYDROX 2400MG/30ML ORAL SUSPENSION 30 ML CUP PO PRN (23:11)
[2017-05-22] MEDS ORDERED: MENTHOL/PHENOL 1 EACH UD MM PRN (23:11)
[2017-05-22] MEDS ORDERED: ACETAMINOPHEN 325 MG TABLET (FP) PO PRN (23:11)
[2017-05-22] MEDS ORDERED: chlordiazePOXIDE HCL 25 MG CAPSULE PO PRN (23:11)
[2017-05-22] MEDS ORDERED: P-EPHED 60MG/TRIPROLIDI 2.5MG TABLET PO PRN (23:11)
[2017-05-22] MEDS ORDERED: hydrOXYzine PAMOATE 50 MG CAPSULE (FP) PO PRN (23:11)
[2017-05-22] MEDS ORDERED: LOPERAMIDE HCL 2 MG CAPSULE PO PRN (23:11)
[2017-05-23] MEDS: chlordiazePOXIDE HCL 25 MG CAPSULE PO SCH ×5 (02:09→22:38)
[2017-05-23] MEDS: PRENATAL VITAMINS W/ FOLIC ACID TABLET (FP) PO SCH (10:52)
--- NOTE | 2017-05-23 12:18 | EKG ---
Test Reason : Blood Pressure : / mmHG Vent. Rate : 048 BPM Atrial Rate : 048 BPM P-R Int : 134 ms QRS Dur : 094 ms QT Int : 412 ms P-R-T Axes : 053 021 027 degrees QTc Int : 368 ms SINUS BRADYCARDIA OTHERWISE NORMAL ECG WHEN COMPARED WITH ECG OF 11-APR-2017 20:51, NO SIGNIFICANT CHANGE WAS FOUND Confirmed by MANUEL CULLEN MD ([id number]) on 05/23/2017 12:18:38 PM Referred By: Confirmed By:MANUEL CULLEN MD
[2017-05-23 12:40] LABS: HEMATOCRIT 39.6 % (35.4-49); HEMOGLOBIN 13.3 GM/dL (11.7-16.9); MCH 29.8 pg (25.7-33.7); MCHC 33.7 g/dl (32.0-35.9); MEAN CELL VOLUME 88.4 fl (80-96); MEAN PLT VOLUME 9.6 fl (7.5-11.1); PLATELET COUNT 167 K/MM3 (134-434); RBC 4.48 M/mm3 (4.00-5.60); RDW 13.3 % (11.9-15.9); WHITE BLOOD COUNT 8.1 K/mm3 (4.0-10.0)
[2017-05-23 12:47] LABS: ALBUMIN 3.5 g/dl (3.4-5.0); ALK PHOS 58 U/L (45-117); ANION GAP 5 (8-16); BILIRUBIN,TOTAL 0.2 mg/dL (0.2-1.0); BLOOD UREA NITROGEN 9 mg/dL (7-18); CALCIUM 7.7 mg/dL (8.5-10.1); CHLORIDE 106 mmol/L (98-107); CO2 31 mmol/L (21-32); GLUCOSE,RANDOM 102 mg/dL (74-106); POTASSIUM 3.8 mmol/L (3.5-5.1); SGOT/AST 12 U/L (15-37); SGPT/ALT 17 U/L (12-78); SODIUM 142 mmol/L (136-145)
--- NOTE | 2017-05-23 15:36 | CONSULT ---
[facility] Psychiatric Consult - Data Date of interview: 05/23/17 Admission source: [facility] Identifying data: Readmission to [facility] for this 32 y/o [place]-born male seeking detox treatment on for alcohol and cannabis (K2) dependence.Patient is single without children,homeless (residential),unemployed and supported on SSI benefits. Substance Abuse History: Confirmed by kelly in this interview.Smoking history : Current every day smoker. Have you smoked in the past 12 months: Yes. Aproximately how many cigarettes per day: 5. Hx Chewing Tobacco Use: No. Initiated information on smoking cessation: Yes. 'Breaking Loose' booklet given : 05/22/17. - Substance & Tx. History. Hx Alcohol Use: Yes. Hx Substance Use : Yes (K2). Substance Use Type: Alcohol. Hx Substance Use Treatment: Yes. - Substances Abused. Alcohol. Route: Oral. Frequency: Daily. Amount used: liquor- 2 pints, beer- 1 six pack. Age of first use: 21. Date of Last Use: Medical History: Patient endorses good general health.Denies history of seizures. Psychiatric History: Onset of psychiatric disturbances (age 26).First psychiatric admission ocurred at the [facility] ([facility]).Diagnosed with Paranoid Schizophrenia and placed on a regimen of tegretol 200 mg /day + 300 mg/hs in combination with prolixin 10 mg/ hs + cogentin 1 mg daily (no pharmacy claims available for review).Mr Beard declares that he got just discharged from a facility in [facility],where he was kept for 10 days (reason of admission : suicidal ideation to jump off the [facility]).Patient reports no current [facility]PD care setting.Used to be under the care of Dr Diaz, at an unnamed [facility]PD clinic in [place].Got lost to follow up after his relocation to the [place].No clear history of actual suicide attempts. Physical/Sexual Abuse/Trauma History: No reported history of sexual abuse. Additional Comment: Urine Drug Screen Results: THC-Marijuana, PCP- Phencyclidine.Noted. Mental Status Exam - Mental Status Exam Alert and Oriented to: Time, Place, Person Cognitive Function: Good Patient Appearance: Unkempt, Disheveled Mood: Nervous, Withdrawn, Anxious Affect: Mood Congruent Patient Behavior: Fatigued, Appropriate, Cooperative Speech Pattern: Clear, Appropriate Voice Loudness: Normal Thought Process: Goal Oriented Thought Disorder: Bizarre Hallucinations: Denies Suicidal Ideation: Denies Homicidal Ideation: Denies Insight/Judgement: Poor Sleep: Poorly, Difficulty falling asleep Appetite: Good Muscle strength/Tone: Normal Gait/Station: Normal Psychiatric Findings - Problem List ([place] 1, 2,3) (1) Alcohol dependence with uncomplicated withdrawal Current Visit: Yes Status: Acute (2) Cannabis dependence, uncomplicated Current Visit: Yes Status: Acute (3) Nicotine dependence Current Visit: Yes Status: Acute Qualifiers: Nicotine product type: cigarettes Substance use status: in withdrawal Qualified Code(s): F17.213 - Nicotine dependence, cigarettes, with withdrawal (4) PCP (phencyclidine) abuse Current Visit: Yes Status: Acute (5) Substance induced mood disorder Current Visit: Yes Status: Acute (6) Schizophrenia Current Visit: Yes Status: Chronic (7) Insomnia Current Visit: Yes Status: Acute - Initial Treatment Plan Initial Treatment Plan: Psychoeducation and support.Sleep hygiene.Detoxification in progress.Medications : prolixin 5 mg po bid + cogentin 1 mg po bid.Side effects/benefits of both drugs are discussed with the patient.Made aware of risk of dystonias,dyskinesias,neuroleptic malignant syndrome,akathisia,sexual dysfunction,anticholinergic effects and cardiovascular adverse events.Patient reports a history of good tolerability to these drugs and he insists on their inclusion in the current regime of medications.Declines to take tegretol.Carbamazepine level = 1 on admission ( indicative of total non-adherence).Withdrawn (incidentally carbamazepine was prescribed for the purpose of mood stabilization according to patient).Mr Beard is agreable to this plan of care.Consent (verbal) obtained from patient.Observation.
--- NOTE | 2017-05-23 17:25 | PN ---
[facility] CIWA - CIWA Score Nausea/Vomitin-No Nausea/No Vomiting Muscle Tremors: 3 Anxiety: 4-Mod. Anxious/Guarded Agitation: 3 Paroxysmal Sweats: 2 Orientation: 0-Oriented Tacttile Disturbances: 2-Mild Itch/Numbness/Burn Auditory Disturbances: 0-None Visual Disturbances: 3-Moderate Sensitivity Headache: 0-None Present CIWA-Ar Total Score: 17 BHS Progress Note (SOAP) Subjective: Anxious, Diarrhea, Tremors, Fatigue. Objective: PT. A & O X 3. NO ACUTE DISTRESS. 05/23/17 17:22 Vital Signs Temperature 98.7 F 05/23/17 14:32 Pulse Rate 54 L 05/23/17 14:32 Respiratory Rate 17 05/23/17 14:32 Blood Pressure 104/61 05/23/17 14:32 O2 Sat by Pulse Oximetry (%) Laboratory Tests 05/23/17 05/23/17 05/23/17 07:50 07:50 07:50 WBC 8.1 D RBC 4.48 Hgb 13.3 Hct 39.6 MCV 88.4 MCH 29.8 MCHC 33.7 RDW 13.3 Plt Count 167 MPV 9.6 D Sodium 142 Potassium 3.8 Chloride 106 Carbon Dioxide 31 Anion Gap 5 L BUN 9 D Creatinine 1.0 Creat Clearance w eGFR > 60 Random Glucose 102 Calcium 7.7 L Total Bilirubin 0.2 AST 12 L ALT 17 Alkaline Phosphatase 58 Total Protein 6.0 L Albumin 3.5 Carbamazepine RPR Titer Nonreactive 05/23/17 11:15 WBC RBC Hgb Hct MCV MCH MCHC RDW Plt Count MPV Sodium Potassium Chloride Carbon Dioxide Anion Gap BUN Creatinine Creat Clearance w eGFR Random Glucose Calcium Total Bilirubin AST ALT Alkaline Phosphatase Total Protein Albumin Carbamazepine 1.0 L* RPR Titer LABS NOTED. UA RESULTS PENDING. 05/23/17 17:25 Assessment: 05/23/17 17:23 WITHDRAWAL SYMPTOMS. Plan: CONTINUE DETOX. INCREASE DAILY PO FLUID INTAKE. PRN IMMODIUM FOR DIARRHEA.
[2017-05-23] MEDS: NICOTINE POLACRILEX 2 MG GUM BC PRN (19:43)
[2017-05-23] MEDS: THIAMINE HCL 100 MG TABLET (FP) PO SCH (22:38)
[2017-05-23] MEDS: BENZTROPINE MESYLATE 1 MG TABLET (FP) PO SCH (22:39)
[2017-05-24] MEDS: chlordiazePOXIDE HCL 25 MG CAPSULE PO SCH ×3 (06:00→17:54)
[2017-05-24] MEDS: BENZTROPINE MESYLATE 1 MG TABLET (FP) PO SCH ×2 (10:31→23:03)
[2017-05-24] MEDS: PRENATAL VITAMINS W/ FOLIC ACID TABLET (FP) PO SCH (10:31)
--- NOTE | 2017-05-24 14:14 | PN ---
S CIWA - CIWA Score Nausea/Vomitin Muscle Tremors: 3 Anxiety: 3 Agitation: 3 Paroxysmal Sweats: 1-Minimal Palms Moist Orientation: 0-Oriented Tacttile Disturbances: 1-Very Mild Itch/Numbness Auditory Disturbances: 1-Very Mild Visual Disturbances: 0-None Headache: 1-Very Mild CIWA-Ar Total Score: 16 BHS Progress Note (SOAP) Subjective: ALERT,IRRITABLE,ANXIOUS,INTERRUPTED SLEEP,TREMOR,PAIN IN THE BODY AND BACK Objective: 05/24/17 14:11 Vital Signs Temperature 97.9 F 05/24/17 13:40 Pulse Rate 70 05/24/17 13:40 Respiratory Rate 18 05/24/17 13:40 Blood Pressure 126/69 05/24/17 13:40 O2 Sat by Pulse Oximetry (%) EKG SINUS BRADYCARDIA 48/MIN NO CHEST PAIN,NO SOB,NO DIZZINESS Laboratory Last Values WBC 8.1 K/mm3 (4.0-10.0) D 05/23/17 07:50 RBC 4.48 M/mm3 (4.00-5.60) 05/23/17 07:50 Hgb 13.3 GM/dL (11.7-16.9) 05/23/17 07:50 Hct 39.6 % (35.4-49) 05/23/17 07:50 MCV 88.4 fl (80-96) 05/23/17 07:50 MCH 29.8 pg (25.7-33.7) 05/23/17 07:50 MCHC 33.7 g/dl (32.0-35.9) 05/23/17 07:50 RDW 13.3 % (11.9-15.9) 05/23/17 07:50 Plt Count 167 K/MM3 (134-434) 05/23/17 07:50 MPV 9.6 fl (7.5-11.1) D 05/23/17 07:50 Sodium 142 mmol/L (136-145) 05/23/17 07:50 Potassium 3.8 mmol/L (3.5-5.1) 05/23/17 07:50 Chloride 106 mmol/L (98-107) 05/23/17 07:50 Carbon Dioxide 31 mmol/L (21-32) 05/23/17 07:50 Anion Gap 5 (8-16) L 05/23/17 07:50 BUN 9 mg/dL (7-18) D 05/23/17 07:50 Creatinine 1.0 mg/dL (0.7-1.3) 05/23/17 07:50 Creat Clearance w eGFR > 60 (>60) 05/23/17 07:50 Random Glucose 102 mg/dL (74-106) 05/23/17 07:50 Calcium 7.7 mg/dL (8.5-10.1) L 05/23/17 07:50 Total Bilirubin 0.2 mg/dL (0.2-1.0) 05/23/17 07:50 AST 12 U/L (15-37) L 05/23/17 07:50 ALT 17 U/L (12-78) 05/23/17 07:50 Alkaline Phosphatase 58 U/L (45-117) 05/23/17 07:50 Total Protein 6.0 g/dl (6.4-8.2) L 05/23/17 07:50 Albumin 3.5 g/dl (3.4-5.0) 05/23/17 07:50 Carbamazepine 1.0 ug/ml (4.0-12.0) L* 05/23/17 11:15 RPR Titer Nonreactive (NONREACTIVE) 05/23/17 07:50 Assessment: 05/24/17 14:13 WITHDRAWAL SYMPTOM Plan: CONTINUE DETOX
[2017-05-24] MEDS: NICOTINE POLACRILEX 2 MG GUM BC PRN (19:39)
[2017-05-24] MEDS: THIAMINE HCL 100 MG TABLET (FP) PO SCH (23:03)
[2017-05-24] MEDS: chlordiazePOXIDE 5 MG CAPSULE PO SCH (23:03)
[2017-05-24 23:39] LABS: URINE APPEARANCE CLEAR; URINE BILIRUBIN NEGATIVE (NEGATIVE); URINE BLOOD NEGATIVE (NEGATIVE); URINE COLOR STRAW; URINE GLUCOSE (UA) NEGATIVE (NEGATIVE); URINE KETONE NEGATIVE (NEGATIVE); URINE LEUK ESTERASE NEGATIVE (NEGATIVE); URINE NITRITE NEGATIVE (NEGATIVE); URINE PROTEIN NEGATIVE (NEGATIVE); URINE UROBILINOGEN NEGATIVE mg/dL (0.2-1.0)
[2017-05-25] MEDS: chlordiazePOXIDE 5 MG CAPSULE PO SCH ×2 (05:20→10:35)
[2017-05-25] MEDS: BENZTROPINE MESYLATE 1 MG TABLET (FP) PO SCH (10:35)
[2017-05-25] MEDS: PRENATAL VITAMINS W/ FOLIC ACID TABLET (FP) PO SCH (10:35)
[2017-05-25] MEDS: NICOTINE POLACRILEX 2 MG GUM BC PRN (12:31)
[2017-05-25 14:00] VITALS: BP 101/65; PULSE 55; TEMP 98.1
--- NOTE | 2017-05-25 17:01 | DS ---
[facility] Detox Discharge Summary Admission Date: 05/22/17 Discharge Date: 05/25/17 - History Present History: Alcohol Dependence, Cannabis Dependence, Pcp Dependence Additional Comments: PATIENT DOES NOT WISH TO STAY TO COMPLETE DETOX REGIMEN. RISKS OF LEAVING DETOX UNIT AGAINST MEDICAL ADVICE AND PRIOR TO COMPLETION OF DETOX REGIMEN EXPLAINED TO PATIENT. PATIENT ADVISED TO GO IMMEDIATELY TO NEAREST ER SHOULD AND INTOLERABLE DETOX SYMPTOMS DEVELOP AT ANY TIME. PATIENT LEFT DETOX UNIT IN STABLE MEDICAL CONDITION. Pertinent Past History: Depression, Insomnia, Nicotine Dependence, Schizophrenia. - Physical Exam Results Vital Signs: Vital Signs Temperature 98.1 F 05/25/17 13:59 Pulse Rate 55 L 05/25/17 13:59 Respiratory Rate 20 05/25/17 13:59 Blood Pressure 101/65 05/25/17 13:59 O2 Sat by Pulse Oximetry (%) Pertinent Admission Physical Exam Findings: WITHDRAWAL SYMPTOMS. Laboratory Tests 05/23/17 05/23/17 05/23/17 07:50 07:50 07:50 WBC 8.1 D RBC 4.48 Hgb 13.3 Hct 39.6 MCV 88.4 MCH 29.8 MCHC 33.7 RDW 13.3 Plt Count 167 MPV 9.6 D Sodium 142 Potassium 3.8 Chloride 106 Carbon Dioxide 31 Anion Gap 5 L BUN 9 D Creatinine 1.0 Creat Clearance w eGFR > 60 Random Glucose 102 Calcium 7.7 L Total Bilirubin 0.2 AST 12 L ALT 17 Alkaline Phosphatase 58 Total Protein 6.0 L Albumin 3.5 Urine Color Urine Appearance Urine pH Ur Specific [place] Urine Protein Urine Glucose (UA) Urine Ketones Urine Blood Urine Nitrite Urine Bilirubin Urine Urobilinogen Ur Leukocyte Esterase Carbamazepine RPR Titer Nonreactive 05/23/17 05/24/17 11:15 23:25 WBC RBC Hgb Hct MCV MCH MCHC RDW Plt Count MPV Sodium Potassium Chloride Carbon Dioxide Anion Gap BUN Creatinine Creat Clearance w eGFR Random Glucose Calcium Total Bilirubin AST ALT Alkaline Phosphatase Total Protein Albumin Urine Color Straw Urine Appearance Clear Urine pH 6.0 Ur Specific [place] 1.012 Urine Protein Negative Urine Glucose (UA) Negative Urine Ketones Negative Urine Blood Negative Urine Nitrite Negative Urine Bilirubin Negative Urine Urobilinogen Negative Ur Leukocyte Esterase Negative Carbamazepine 1.0 L* RPR Titer LABS NOTED. - Treatment Hospital Course: Detoxed Safely - Medication Discharge Medications: Ambulatory Orders Carbamazepine [Tegretol -] 200 mg PO DAILY 03/13/17 Carbamazepine [Tegretol -] 300 mg PO HS 03/13/17 Diphenhydramine [Benadryl -] 50 mg PO HS 03/13/17 Benztropine Mesylate [Cogentin -] 1 mg PO DAILY #30 mg 04/12/17 Fluphenazine HCl 10 mg PO HS #30 tablet 04/12/17 - Diagnosis (1) Alcohol dependence with uncomplicated withdrawal Status: Acute (2) Nicotine dependence Status: Acute Qualifiers: Nicotine product type: cigarettes Substance use status: in withdrawal Qualified Code(s): F17.213 - Nicotine dependence, cigarettes, with withdrawal (3) Syncope Status: Acute Qualifiers: Syncope type: unspecified Qualified Code(s): R55 - Syncope and collapse (4) Cannabis dependence, uncomplicated Status: Acute (5) Insomnia Status: Acute Qualifiers: Insomnia type: unspecified Qualified Code(s): G47.00 - Insomnia, unspecified (6) PCP (phencyclidine) abuse Status: Acute (7) Substance induced mood disorder Status: Acute (8) Schizophrenia Status: Chronic Qualifiers: Schizophrenia type: unspecified Qualified Code(s): F20.9 - Schizophrenia, unspecified - AMA Did Patient Leave Against Medical Advice: Yes (PATIENT DOES NOT WISH TO STAY TO COMPLETE DETOX REGIMEN.)
[2017-05-25] MEDS ORDERED: chlordiazePOXIDE HCL 10 MG CAPSULE PO SCH (23:00)
== END 2017-05-25 16:35 | disposition left against medical advice (07) | DRG 770 ==
LOC: YASAS 19:33 → Y3N 22:52
PROVIDERS: ADMIT Internal Medicine; ATTEND Internal Medicine
PROC: HZ2ZZZZ Detoxification Services for Substance Abuse Treatment (ICD-10-PCS; principal; 2017-05-22)
DX: F10.230 Alcohol dependence with withdrawal, uncomplicated (principal); F12.20 Cannabis dependence, uncomplicated; F16.10 Hallucinogen abuse, uncomplicated; F17.213 Nicotine dependence, cigarettes, with withdrawal; F19.24 Other psychoactive substance dependence with psychoactive substance-induced mood disorder; F20.9 Schizophrenia, unspecified; G47.00 Insomnia, unspecified; R00.1 Bradycardia, unspecified; Z86.79 Personal history of other diseases of the circulatory system; Z91.5 Personal history of self-harm
CPT/HCPCS: 36415; 80053; 80156; 81003; 85027; 86593; 93005; 93010

== ENCOUNTER 2017-06-01 19:04 | Inpatient (IN) | payer OTHER ==
[2017-06-01 22:18] VITALS: BMI 28.3
--- NOTE | 2017-06-01 22:55 | HP ---
CIWA Score - CIWA Score Nausea/Vomitin-Int. Nausea w/Dry Heave Muscle Tremors: 2 Anxiety: 5 Agitation: 1-Slight > Activity Paroxysmal Sweats: 3 Orientation: 0-Oriented Tacttile Disturbances: 0-None Auditory Disturbances: 2-Mild Harshness/Frighten Visual Disturbances: 2-Mild Sensitivity Headache: 3-Moderate CIWA-Ar Total Score: 22 Admission ROS S - HPI Chief Complaint: withdrawal symptoms Allergies/Adverse Reactions: Allergies Allergy/AdvReac Type Severity Reaction Status Date / Time No Known Allergies Allergy Verified 05/22/17 22:22 History of Present Illness: 32 yo male with hx of K2 marijuana, nicotine, PCP and alcohol dependence is here seeking detox. PMHX: schizophrenia and psychosis, denies any other medical condition. Currently denies suicidal / homicidal ideation. Reports hx of suicide attempt first week in May 2017 he had tried to jump off the [facility], reports yesterday he tried to cut his right wrist. As per patient he went on to [facility] for suicidal thoughts. Reports no significant period of sobriety. Last detox at [facility] 05/22/17 -05/25/17 left AMA . Exam Limitations: No Limitations - Ebola screening Have you traveled outside of the country in the last 21 days: No Have you had contact with anyone from an Ebola affected area: No Have you been sick,other than usual withdrawal symptoms: No Do you have a fever: No - Review of Systems Constitutional: Chills, Loss of Appetite, Weakness, Unintentional Wgt. Loss (30 lbs over 2 years) EENT: reports: See HPI, Nose Congestion Respiratory: reports: No Symptoms reported Cardiac: reports: No Symptoms Reported GI: reports: Nausea, Poor Appetite, Vomiting : reports: No Symptoms Reported Musculoskeletal: reports: No Symptoms Reported Integumentary: reports: No Symptoms Reported Neuro: reports: Weakness Endocrine: reports: No Symptoms Reported Hematology: reports: No Symptoms Reported Psychiatric: reports: Orientated x3, Agitated, Anxious Other Systems: Reviewed and Negative Patient History - Patient Medical History Hx Anemia: No Hx Asthma: No Hx Chronic Obstructive Pulmonary Disease (COPD): No Hx Cancer: No Hx Cardiac Disorders: No Hx Congestive Heart Failure: No Hx Hypertension: No Hx Hypercholesterolemia: No Hx Pacemaker: No HX Cerebrovascular Accident: No Hx Seizures: No Hx Dementia: No Hx Diabetes: No Hx Gastrointestinal Disorders: No Hx Liver Disease: No Hx Genitourinary Disorders: No Hx Sexually Transmitted Disorders: No Hx Renal Disease (ESRD): No Hx Thyroid Disease: No Hx Human Immunodeficiency Virus (HIV): No (last 02/20 negative) Hx Hepatitis C: No Hx Depression: Yes Hx Suicide Attempt: Yes (2 WEEKS: ATTEMPTED TO JUMP OFF [facility], yesterday tried to cut his wrist ) Hx Bipolar Disorder: No Hx Schizophrenia: Yes - Patient Surgical History Past Surgical History: No Hx Neurologic Surgery: No Hx Cataract Extraction: No Hx Cardiac Surgery: No Hx Lung Surgery: No Hx Breast Surgery: No Hx Breast Biopsy: No Hx Abdominal Surgery: No Hx Appendectomy: No Hx Cholecystectomy: No Hx Genitourinary Surgery: No Hx Section: No Hx Orthopedic Surgery: No Anesthesia Reaction: No - PPD History Previous Implant?: Yes Documented Results: Negative w/proof Date: 03/15/17 Results: 0 - Reproductive History Patient is a Female of Child Bearing Age (11 -55 yrs old): No - Smoking Cessation Smoking history: Current every day smoker Have you smoked in the past 12 months: Yes Aproximately how many cigarettes per day: 5 Hx Chewing Tobacco Use: No Initiated information on smoking cessation: Yes 'Breaking Loose' booklet given: 06/01/17 - Substance & Tx. History Hx Alcohol Use: Yes Hx Substance Use: Yes Substance Use Type: Alcohol, Marijuana Hx Substance Use Treatment: Yes ([facility] 05/22/17 -05/25/17) - Substances Abused Alcohol Route: Oral Frequency: Daily Amount used: 2 beers and 1 pint of Vodka Age of first use: 21 Date of Last Use: 06/01/17 PCP Route: Smoking Frequency: 1-2 times per week Amount used: 1 blunt Age of first use: 27 Date of Last Use: 05/30/17 Marijuana/Hashish Route: Smoking Frequency: Daily Amount used: 5 blunts Age of first use: 27 Date of Last Use: 06/01/17 (K-2 marijuana) Family Disease History - Family Disease History Family Disease History: Diabetes: Grandparent, Heart Disease: Grandparent Admission Physical Exam BHS - Vital Signs Vital Signs: Vital Signs - 24 hr 06/01/17 22:17 Temperature 98.8 F Pulse Rate 64 Respiratory 18 Rate Blood Pressure 122/71 - Physical General Appearance: Yes: Disheveled, Mild Distress, Tremorous, Sweating, Anxious , Other (unkempt, malodorous) HEENTM: Yes: EOMI, Hearing grossly Normal, Normal ENT Inspection, Normocephalic , Normal Voice, ABIOLA, Pharynx Normal, Tm's normal Respiratory: Yes: Chest Non-Tender, Lungs Clear, Normal Breath Sounds, No Respiratory Distress, No Accessory Muscle Use Neck: Yes: No masses,lesions,Nodules, Trachea in good position Breast: Yes: Breast Exam Deferred Cardiology: Yes: Regular Rhythm, Regular Rate, S1, S2 Abdominal: Yes: Normal Bowel Sounds, Non Tender, Soft, Protuberent Genitourinary: Yes: Within Normal Limits Back: Yes: Normal Inspection Musculoskeletal: Yes: full range of Motion, Gait Steady, Pelvis Stable Extremities: Yes: Normal Capillary Refill, Normal Inspection, Normal Range of Motion, Non-Tender Neurological: Yes: on air talent II-XII NML intact, Fully Oriented, Alert, Motor Strength 5/5, Normal Response, Depressed Affect Integumentary: Yes: Normal Color, Dry, Warm Lymphatic: Yes: Within Normal Limits - Addiitonal Findings: Patient was vomited x 2 during the assessment - Diagnostic (1) Psychiatric disorder Current Visit: Yes Status: Suspected (2) Anxious mood Current Visit: Yes Status: Acute (3) Alcohol dependence with uncomplicated withdrawal Current Visit: Yes Status: Acute (4) Cannabis dependence, uncomplicated Current Visit: Yes Status: Chronic (5) Nicotine dependence Current Visit: Yes Status: Chronic Qualifiers: Nicotine product type: cigarettes Substance use status: in withdrawal Qualified Code(s): F17.213 - Nicotine dependence, cigarettes, with withdrawal (6) PCP (phencyclidine) abuse Current Visit: Yes Status: Chronic (7) Substance induced mood disorder Current Visit: Yes Status: Acute (8) Nausea & vomiting Current Visit: Yes Status: Acute Qualifiers: Vomiting type: unspecified Vomiting Intractability: unspecified Qualified Code(s): R11.2 - Nausea with vomiting, unspecified Cleared for Admission BHS - Detox or Rehab [facility] Level of Care: Medically Managed Detox Regimen/Protocol: Librium [facility] Breath Alcohol Content Breath Alcohol Content: 0 Urine Drug Screen - Results Drug Screen Negative: Yes Urine Drug Screen Results: THC-Marijuana, BZO-Benzodiazepines
[2017-06-01] MEDS ORDERED: chlordiazePOXIDE HCL 25 MG CAPSULE PO PRN (23:18)
[2017-06-01] MEDS ORDERED: IBUPROFEN 400 MG TABLET (FP) PO PRN (23:18)
[2017-06-01] MEDS ORDERED: LOPERAMIDE HCL 2 MG CAPSULE PO PRN (23:18)
[2017-06-01] MEDS ORDERED: MENTHOL/PHENOL 1 EACH UD MM PRN (23:18)
[2017-06-01] MEDS ORDERED: MAG HYDROX/AL HYDROX/SIMETH 30 ML UNIT-DOSE CUP PO PRN (23:18)
[2017-06-01] MEDS ORDERED: ACETAMINOPHEN 325 MG TABLET (FP) PO PRN (23:18)
[2017-06-01] MEDS ORDERED: guaiFENesin/D-METHORPHAN HB 10 ML UNIT-DOSE CUPS PO PRN (23:18)
[2017-06-01] MEDS ORDERED: MAGNESIUM HYDROX 2400MG/30ML ORAL SUSPENSION 30 ML CUP PO PRN (23:18)
[2017-06-01] MEDS ORDERED: hydrOXYzine PAMOATE 50 MG CAPSULE (FP) PO PRN (23:18)
[2017-06-01] MEDS ORDERED: P-EPHED 60MG/TRIPROLIDI 2.5MG TABLET PO PRN (23:18)
[2017-06-01] MEDS ORDERED: chlordiazePOXIDE HCL 25 MG CAPSULE PO ONE (23:18)
[2017-06-01] MEDS ORDERED: MAGNESIUM CITRATE 300 ML BOTTLE PO PRN (23:18)
[2017-06-01] MEDS ORDERED: ONDANSETRON *ODT* 4 MG TABLET SL ONE (23:30)
[2017-06-02] MEDS: chlordiazePOXIDE HCL 25 MG CAPSULE PO SCH ×5 (00:08→22:26)
[2017-06-02 01:10] LABS: URINE APPEARANCE CLEAR; URINE BILIRUBIN NEGATIVE (NEGATIVE); URINE BLOOD NEGATIVE (NEGATIVE); URINE COLOR YELLOW; URINE GLUCOSE (UA) NEGATIVE (NEGATIVE); URINE KETONE TRACE (NEGATIVE); URINE LEUK ESTERASE NEGATIVE (NEGATIVE); URINE NITRITE NEGATIVE (NEGATIVE); URINE PROTEIN NEGATIVE (NEGATIVE)
[2017-06-02 09:44] LABS: HEMATOCRIT 41.7 % (35.4-49); HEMOGLOBIN 13.9 GM/dL (11.7-16.9); MCH 29.6 pg (25.7-33.7); MCHC 33.3 g/dl (32.0-35.9); MEAN CELL VOLUME 88.7 fl (80-96); MEAN PLT VOLUME 8.4 fl (7.5-11.1); PLATELET COUNT 260 K/MM3 (134-434); RDW 13.5 % (11.9-15.9); WHITE BLOOD COUNT 9.1 K/mm3 (4.0-10.0)
[2017-06-02 09:55] LABS: CHLORIDE 104 mmol/L (98-107); POTASSIUM 4.2 mmol/L (3.5-5.1); SODIUM 140 mmol/L (136-145)
[2017-06-02 10:19] LABS: ALBUMIN 4.1 g/dl (3.4-5.0); ALK PHOS 59 U/L (45-117); ANION GAP 9 (8-16); BILIRUBIN,TOTAL 0.5 mg/dL (0.2-1.0); BLOOD UREA NITROGEN 13 mg/dL (7-18); CALCIUM 8.7 mg/dL (8.5-10.1); CO2 27 mmol/L (21-32); CREATININE 0.8 mg/dL (0.7-1.3); GLUCOSE,RANDOM 86 mg/dL (74-106); SGOT/AST 12 U/L (15-37); SGPT/ALT 22 U/L (12-78); TOT PROT 7.1 g/dl (6.4-8.2)
[2017-06-02] MEDS: PRENATAL VITAMINS W/ FOLIC ACID TABLET (FP) PO SCH (10:39)
[2017-06-02] MEDS: NICOTINE 14 MG/24 HOURS TOPICAL PATCH TD SCH (10:40)
--- NOTE | 2017-06-02 11:04 | PN ---
S CIWA - CIWA Score Nausea/Vomitin-No Nausea/No Vomiting Muscle Tremors: 4-Moderate,w/Arms Extend Anxiety: 4-Mod. Anxious/Guarded Agitation: 4-Moderately Restless Paroxysmal Sweats: 1-Minimal Palms Moist Orientation: 0-Oriented Tacttile Disturbances: 3-Moderate Itch/Numb/Burn Auditory Disturbances: 0-None Visual Disturbances: 0-None Headache: 0-None Present CIWA-Ar Total Score: 16 BHS Progress Note (SOAP) Subjective: ANXIETY,CHILLS,FATIGUE. Objective: 06/02/17 11:02 DECREASED ANXIETY THIS MORNING, CALM AND COMMUNICATING POSITIVELY. PT IS OOB WITH WALKER AND AMBULATING ROUND THE PERIMETER OF THE UNIT HALLWAYS. Assessment: 06/02/17 11:04 WITHDRAWAL SX Plan: CONTINUE DETOX
--- NOTE | 2017-06-02 11:08 | PN ---
[facility] CIWA - CIWA Score Nausea/Vomitin-No Nausea/No Vomiting Muscle Tremors: 4-Moderate,w/Arms Extend Anxiety: 4-Mod. Anxious/Guarded Agitation: 4-Moderately Restless Paroxysmal Sweats: 1-Minimal Palms Moist Orientation: 0-Oriented Tacttile Disturbances: 3-Moderate Itch/Numb/Burn Auditory Disturbances: 0-None Visual Disturbances: 0-None Headache: 0-None Present CIWA-Ar Total Score: 16 BHS Progress Note (SOAP) Subjective: PT C/O ANXIETY,CHILLS,FATIGUE. Objective: 06/02/17 11:07 Vital Signs Temperature 96.1 F L 06/02/17 10:04 Pulse Rate 62 06/02/17 10:04 Respiratory Rate 20 06/02/17 10:04 Blood Pressure 98/65 06/02/17 10:04 O2 Sat by Pulse Oximetry (%) Laboratory Last Values WBC 9.1 K/mm3 (4.0-10.0) 06/02/17 07:30 RBC 4.70 M/mm3 (4.00-5.60) 06/02/17 07:30 Hgb 13.9 GM/dL (11.7-16.9) 06/02/17 07:30 Hct 41.7 % (35.4-49) 06/02/17 07:30 MCV 88.7 fl (80-96) 06/02/17 07:30 MCH 29.6 pg (25.7-33.7) 06/02/17 07:30 MCHC 33.3 g/dl (32.0-35.9) 06/02/17 07:30 RDW 13.5 % (11.9-15.9) 06/02/17 07:30 Plt Count 260 K/MM3 (134-434) D 06/02/17 07:30 MPV 8.4 fl (7.5-11.1) D 06/02/17 07:30 Sodium 140 mmol/L (136-145) 06/02/17 07:30 Potassium 4.2 mmol/L (3.5-5.1) 06/02/17 07:30 Chloride 104 mmol/L (98-107) 06/02/17 07:30 Carbon Dioxide 27 mmol/L (21-32) 06/02/17 07:30 Anion Gap 9 (8-16) 06/02/17 07:30 BUN 13 mg/dL (7-18) D 06/02/17 07:30 Creatinine 0.8 mg/dL (0.7-1.3) 06/02/17 07:30 Creat Clearance w eGFR > 60 (>60) 06/02/17 07:30 Random Glucose 86 mg/dL (74-106) 06/02/17 07:30 Calcium 8.7 mg/dL (8.5-10.1) 06/02/17 07:30 Total Bilirubin 0.5 mg/dL (0.2-1.0) D 06/02/17 07:30 AST 12 U/L (15-37) L 06/02/17 07:30 ALT 22 U/L (12-78) D 06/02/17 07:30 Alkaline Phosphatase 59 U/L (45-117) 06/02/17 07:30 Total Protein 7.1 g/dl (6.4-8.2) 06/02/17 07:30 Albumin 4.1 g/dl (3.4-5.0) 06/02/17 07:30 Urine Color Yellow 06/01/17 20:00 Urine Appearance Clear 06/01/17 20:00 Urine pH 5.0 (5.0-8.0) 06/01/17 20:00 Ur Specific [place] 1.029 (1.001-1.035) 06/01/17 20:00 Urine Protein Negative (NEGATIVE) 06/01/17 20:00 Urine Glucose (UA) Negative (NEGATIVE) 06/01/17 20:00 Urine Ketones Trace (NEGATIVE) H 06/01/17 20:00 Urine Blood Negative (NEGATIVE) 06/01/17 20:00 Urine Nitrite Negative (NEGATIVE) 06/01/17 20:00 Urine Bilirubin Negative (NEGATIVE) 06/01/17 20:00 Urine Urobilinogen 2.0 mg/dL (0.2-1.0) 06/01/17 20:00 Ur Leukocyte Esterase Negative (NEGATIVE) 06/01/17 20:00 Assessment: 06/02/17 11:07 WITHDRAWAL SX Plan: CONTINUE DETOX INCREASE PO FLUIDS
[2017-06-02] MEDS ORDERED: ONDANSETRON *ODT* 4 MG TABLET SL PRN (11:10)
--- NOTE | 2017-06-02 12:40 | CONSULT ---
[facility] Psychiatric Consult - Data Date of interview: 06/02/17 Admission source: [facility] Identifying data: This is one of multiple admissions to [facility] for this 32 y/ o [place]born male seeking detox treatment on for alcohol, phencyclidine and cannabis (K2) dependence.Patient is single without children, homeless ([facility]),unemployed and supported on SSI benefits.Mr Beard had left this program on 05/25/17 (against medical advice). Substance Abuse History: Discussed with the patient in this interview.Mr Beard admits to continuous use of K2,alcohol and intermittent exposure to PCP.Find details in the current [facility] report as follows : Smoking history: Current every day smoker. Have you smoked in the past 12 months: Yes. Aproximately how many cigarettes per day: 5. Hx Chewing Tobacco Use: No. Initiated information on smoking cessation: Yes. 'Breaking Loose' booklet given : 06/01/17. - Substance & Tx. History. Hx Alcohol Use: Yes. Hx Substance Use : Yes. Substance Use Type: Alcohol, Marijuana. Hx Substance Use Treatment: Yes ([facility] 05/22/17 -05/25/17). - Substances Abused. Alcohol. Route: Oral. Frequency: Daily. Amount used: 2 beers and 1 pint of Vodka. Age of first use: 21. Date of Last Use: 06/01/17. PCP. Route: Smoking. Frequency: 1-2 times per week. Amount used: 1 blunt. Age of first use: 27. Date of Last Use : 05/30/17. Marijuana/Hashish. Route: Smoking. Frequency: Daily. Amount used: 5 blunts. Age of first use: 27. Date of Last Use: 06/01/17 (K-2 marijuana) Medical History: Patient denies medical problems.No reported history of seizures. Psychiatric History: Diagnosed with Paranoid Schizophrenia.Prescribed prolixin, cogentin and carbamazepine (doses not recalled).Mr Beard admits to total non- adherence to psychiatric aftercare.It appears that the patient presents self to various emergency care settings in times of crisis,gets scripts but neglects to follow up with recommendations.Psychiatric disturbances are self-reported to having occurred at age 26 (persecutory delusions,auditory hallucinations, agitation,insomnia).First psychiatric admission : [facility] ([facility]).History of multiple psychiatric hospitalizations.Mr Beard declares that he was recently at [facility] (prior to this [facility] visit). Reportedly discharged from a facility in [facility],where he was kept for 10 days (reason of admission : suicidal ideation to jump off the [facility]) shortly before his admission to [facility] on 05/22/17.Patient declares a past history of suicide attempts (wrist-cutting). Physical/Sexual Abuse/Trauma History: Not discussed in this interview.Patient declines.Noted history of multiple arrests and incarcerations. Additional Comment: Urine Drug Screen Results: THC-Marijuana, BZO- Benzodiazepines.Noted. Mental Status Exam - Mental Status Exam Alert and Oriented to: Time, Place, Person Cognitive Function: Good Patient Appearance: Unkempt, Disheveled (well nourished) Mood: Angry, Nervous, Irritable Affect: Mood Congruent Patient Behavior: Guarded, Suspicious, Cooperative (superficially cooperative) Speech Pattern: Clear Voice Loudness: Normal Thought Process: Goal Oriented Thought Disorder: Paranoid Ideation, Bizarre Hallucinations: Denies Suicidal Ideation: Denies Homicidal Ideation: Denies Insight/Judgement: Poor Sleep: Poorly, Difficulty falling asleep Appetite: Good Muscle strength/Tone: Normal Gait/Station: Normal Psychiatric Findings - Problem List ([place] 1, 2,3) (1) Paranoid schizophrenia Status: Chronic (2) Alcohol dependence with uncomplicated withdrawal Status: Acute (3) Cannabis dependence, uncomplicated Status: Acute (4) Nicotine dependence Status: Acute Qualifiers: Nicotine product type: cigarettes Substance use status: in withdrawal Qualified Code(s): F17.213 - Nicotine dependence, cigarettes, with withdrawal (5) Substance induced mood disorder Status: Acute (6) Insomnia Status: Deleted Qualifiers: Insomnia type: unspecified Qualified Code(s): G47.00 - Insomnia, unspecified - Initial Treatment Plan Initial Treatment Plan: Records are reviewed.Patient is re-interviewed in the presence of counselor Leticia Dominguez.Mr Beard is assessed for mental status and screened for potential for violence towards self/others (patient vehemently denied harboring homicidal thoughts,plan or intent).He expressed concerns about losing his SSI benefits due to his chronic non-adherence to psychiatric aftercare.Seemingly eager to engage in OPD care upon completion of this detoxification.Arrangements are currently in process for a referral to [facility] ([facility] is an alternate) .In the meantime,the patient is placed back on a regimen of prolixin 5 mg po bid + cogentin 1 mg po bid.Patient declines to take tegretol.Side effects/ benefits of each medication are discussed with patient.Made aware of risk of extrapyramidal syndrome,dystonias,akathisia,dyskinesias,neuroleptic malignant syndrome,blood dyscrasias,exfoliative dermatitis (tegretol),anticholinergic effects which include dry mouth,blurred vision,urinary hesitancy, constipation.Mr Beard has expressed his agreement to this plan of care.He informs that tegretol has been prescribed to him for " my schizophrenia and not for seizures." Patient denies history of a seizure disorder.Close observation.Psychiatric re-consultation to follow as needed.Mr Beard,at the present time, does NOT meet criteria for transfer to another facility for inpatient psychiatric care.
--- NOTE | 2017-06-02 13:34 | EKG ---
Test Reason : Blood Pressure : / mmHG Vent. Rate : 057 BPM Atrial Rate : 057 BPM P-R Int : 152 ms QRS Dur : 092 ms QT Int : 416 ms P-R-T Axes : 061 015 018 degrees QTc Int : 404 ms SINUS BRADYCARDIA WITH SINUS ARRHYTHMIA OTHERWISE NORMAL ECG WHEN COMPARED WITH ECG OF 23-MAY-2017 01:59, NO SIGNIFICANT CHANGE WAS FOUND Confirmed by MD Baker Daniel ([id number]) on 06/02/2017 1:33:43 PM Referred By: Confirmed By:Alonzo Baker MD
[2017-06-02] MEDS: BENZTROPINE MESYLATE 1 MG TABLET (FP) PO SCH ×2 (14:20→22:26)
[2017-06-02] MEDS ORDERED: carBAMazepine 100 MG TAB.CHEW PO SCH (22:00)
[2017-06-02] MEDS: THIAMINE HCL 100 MG TABLET (FP) PO SCH (22:26)
[2017-06-03] MEDS: chlordiazePOXIDE HCL 25 MG CAPSULE PO SCH ×3 (05:55→17:53)
[2017-06-03] MEDS: PRENATAL VITAMINS W/ FOLIC ACID TABLET (FP) PO SCH (10:47)
[2017-06-03] MEDS: BENZTROPINE MESYLATE 1 MG TABLET (FP) PO SCH ×2 (10:47→22:12)
[2017-06-03] MEDS: NICOTINE 14 MG/24 HOURS TOPICAL PATCH TD SCH (10:47)
--- NOTE | 2017-06-03 12:04 | PN ---
[facility] CIWA - CIWA Score Nausea/Vomitin-No Nausea/No Vomiting Muscle Tremors: 4-Moderate,w/Arms Extend Anxiety: 4-Mod. Anxious/Guarded Agitation: 4-Moderately Restless Paroxysmal Sweats: 1-Minimal Palms Moist Orientation: 0-Oriented Tacttile Disturbances: 3-Moderate Itch/Numb/Burn Auditory Disturbances: 0-None Visual Disturbances: 0-None Headache: 0-None Present CIWA-Ar Total Score: 16 S Progress Note (SOAP) Subjective: ANXIETY,SWEATS,"TOSSING/TURNING ALL NIGHT", FATIGUE. Objective: 06/03/17 12:04 Vital Signs Temperature 96.7 F L 06/03/17 09:18 Pulse Rate 47 L 06/03/17 09:18 Respiratory Rate 18 06/03/17 09:18 Blood Pressure 96/64 06/03/17 09:18 O2 Sat by Pulse Oximetry (%) Laboratory Last Values WBC 9.1 K/mm3 (4.0-10.0) 06/02/17 07:30 RBC 4.70 M/mm3 (4.00-5.60) 06/02/17 07:30 Hgb 13.9 GM/dL (11.7-16.9) 06/02/17 07:30 Hct 41.7 % (35.4-49) 06/02/17 07:30 MCV 88.7 fl (80-96) 06/02/17 07:30 MCH 29.6 pg (25.7-33.7) 06/02/17 07:30 MCHC 33.3 g/dl (32.0-35.9) 06/02/17 07:30 RDW 13.5 % (11.9-15.9) 06/02/17 07:30 Plt Count 260 K/MM3 (134-434) D 06/02/17 07:30 MPV 8.4 fl (7.5-11.1) D 06/02/17 07:30 Sodium 140 mmol/L (136-145) 06/02/17 07:30 Potassium 4.2 mmol/L (3.5-5.1) 06/02/17 07:30 Chloride 104 mmol/L (98-107) 06/02/17 07:30 Carbon Dioxide 27 mmol/L (21-32) 06/02/17 07:30 Anion Gap 9 (8-16) 06/02/17 07:30 BUN 13 mg/dL (7-18) D 06/02/17 07:30 Creatinine 0.8 mg/dL (0.7-1.3) 06/02/17 07:30 Creat Clearance w eGFR > 60 (>60) 06/02/17 07:30 Random Glucose 86 mg/dL (74-106) 06/02/17 07:30 Calcium 8.7 mg/dL (8.5-10.1) 06/02/17 07:30 Total Bilirubin 0.5 mg/dL (0.2-1.0) D 06/02/17 07:30 AST 12 U/L (15-37) L 06/02/17 07:30 ALT 22 U/L (12-78) D 06/02/17 07:30 Alkaline Phosphatase 59 U/L (45-117) 06/02/17 07:30 Total Protein 7.1 g/dl (6.4-8.2) 06/02/17 07:30 Albumin 4.1 g/dl (3.4-5.0) 06/02/17 07:30 Urine Color Yellow 06/01/17 20:00 Urine Appearance Clear 06/01/17 20:00 Urine pH 5.0 (5.0-8.0) 06/01/17 20:00 Ur Specific [place] 1.029 (1.001-1.035) 06/01/17 20:00 Urine Protein Negative (NEGATIVE) 06/01/17 20:00 Urine Glucose (UA) Negative (NEGATIVE) 06/01/17 20:00 Urine Ketones Trace (NEGATIVE) H 06/01/17 20:00 Urine Blood Negative (NEGATIVE) 06/01/17 20:00 Urine Nitrite Negative (NEGATIVE) 06/01/17 20:00 Urine Bilirubin Negative (NEGATIVE) 06/01/17 20:00 Urine Urobilinogen 2.0 mg/dL (0.2-1.0) 06/01/17 20:00 Ur Leukocyte Esterase Negative (NEGATIVE) 06/01/17 20:00 RPR Titer Nonreactive (NONREACTIVE) 06/02/17 07:30 Assessment: 06/03/17 12:04 WITHDRAWAL SX Plan: CONTIUE DETOX
[2017-06-03] MEDS: NICOTINE POLACRILEX 2 MG GUM BC PRN (17:54)
[2017-06-03] MEDS: THIAMINE HCL 100 MG TABLET (FP) PO SCH (22:12)
[2017-06-03] MEDS: chlordiazePOXIDE 5 MG CAPSULE PO SCH (22:12)
[2017-06-04] MEDS: chlordiazePOXIDE 5 MG CAPSULE PO SCH ×3 (06:04→18:04)
[2017-06-04] MEDS: NICOTINE 14 MG/24 HOURS TOPICAL PATCH TD SCH (10:40)
[2017-06-04] MEDS: BENZTROPINE MESYLATE 1 MG TABLET (FP) PO SCH (10:40)
[2017-06-04] MEDS: PRENATAL VITAMINS W/ FOLIC ACID TABLET (FP) PO SCH (10:40)
[2017-06-04 11:04] VITALS: BP 105/57; PULSE 59; TEMP 96.5
--- NOTE | 2017-06-04 11:21 | PN ---
[facility] Progress Note (SOAP) Subjective: ANXIETY,SWEATS,FATIGUE. Objective: 06/04/17 11:21 Vital Signs Temperature 96.5 F L 06/04/17 11:03 Pulse Rate 59 L 06/04/17 11:03 Respiratory Rate 18 06/04/17 11:03 Blood Pressure 105/57 06/04/17 11:03 O2 Sat by Pulse Oximetry (%) Laboratory Last Values WBC 9.1 K/mm3 (4.0-10.0) 06/02/17 07:30 RBC 4.70 M/mm3 (4.00-5.60) 06/02/17 07:30 Hgb 13.9 GM/dL (11.7-16.9) 06/02/17 07:30 Hct 41.7 % (35.4-49) 06/02/17 07:30 MCV 88.7 fl (80-96) 06/02/17 07:30 MCH 29.6 pg (25.7-33.7) 06/02/17 07:30 MCHC 33.3 g/dl (32.0-35.9) 06/02/17 07:30 RDW 13.5 % (11.9-15.9) 06/02/17 07:30 Plt Count 260 K/MM3 (134-434) D 06/02/17 07:30 MPV 8.4 fl (7.5-11.1) D 06/02/17 07:30 Sodium 140 mmol/L (136-145) 06/02/17 07:30 Potassium 4.2 mmol/L (3.5-5.1) 06/02/17 07:30 Chloride 104 mmol/L (98-107) 06/02/17 07:30 Carbon Dioxide 27 mmol/L (21-32) 06/02/17 07:30 Anion Gap 9 (8-16) 06/02/17 07:30 BUN 13 mg/dL (7-18) D 06/02/17 07:30 Creatinine 0.8 mg/dL (0.7-1.3) 06/02/17 07:30 Creat Clearance w eGFR > 60 (>60) 06/02/17 07:30 Random Glucose 86 mg/dL (74-106) 06/02/17 07:30 Calcium 8.7 mg/dL (8.5-10.1) 06/02/17 07:30 Total Bilirubin 0.5 mg/dL (0.2-1.0) D 06/02/17 07:30 AST 12 U/L (15-37) L 06/02/17 07:30 ALT 22 U/L (12-78) D 06/02/17 07:30 Alkaline Phosphatase 59 U/L (45-117) 06/02/17 07:30 Total Protein 7.1 g/dl (6.4-8.2) 06/02/17 07:30 Albumin 4.1 g/dl (3.4-5.0) 06/02/17 07:30 Urine Color Yellow 06/01/17 20:00 Urine Appearance Clear 06/01/17 20:00 Urine pH 5.0 (5.0-8.0) 06/01/17 20:00 Ur Specific [place] 1.029 (1.001-1.035) 06/01/17 20:00 Urine Protein Negative (NEGATIVE) 06/01/17 20:00 Urine Glucose (UA) Negative (NEGATIVE) 06/01/17 20:00 Urine Ketones Trace (NEGATIVE) H 06/01/17 20:00 Urine Blood Negative (NEGATIVE) 06/01/17 20:00 Urine Nitrite Negative (NEGATIVE) 06/01/17 20:00 Urine Bilirubin Negative (NEGATIVE) 06/01/17 20:00 Urine Urobilinogen 2.0 mg/dL (0.2-1.0) 06/01/17 20:00 Ur Leukocyte Esterase Negative (NEGATIVE) 06/01/17 20:00 RPR Titer Nonreactive (NONREACTIVE) 06/02/17 07:30 Assessment: 06/04/17 11:21 WITHDRAWAL SX Plan: CONTINUE DETOX
[2017-06-04] MEDS: NICOTINE POLACRILEX 2 MG GUM BC PRN (14:26)
--- NOTE | 2017-06-04 17:40 | DS ---
[facility] Detox Discharge Summary Admission Date: 06/01/17 Discharge Date: 06/04/17 - History Present History: Alcohol Dependence, Cannabis Dependence, Opioid Dependence Additional Comments: patient did not stay for assessment bymedical provider. left ama c/o claustrophobia, nurse discussed risks of not com-pleting detox as ordered, including relapse, od and . no si or homicidal ideation., medically stable. Pertinent Past History: anxiety, depression, insomnia and claustrophobia, nicotine dependence - Physical Exam Results Vital Signs: Vital Signs Temperature 96.5 F L 06/04/17 11:03 Pulse Rate 59 L 06/04/17 11:03 Respiratory Rate 18 06/04/17 11:03 Blood Pressure 105/57 06/04/17 11:03 O2 Sat by Pulse Oximetry (%) Laboratory Tests 06/01/17 06/02/17 06/02/17 20:00 07:30 07:30 WBC 9.1 RBC 4.70 Hgb 13.9 Hct 41.7 MCV 88.7 MCH 29.6 MCHC 33.3 RDW 13.5 Plt Count 260 D MPV 8.4 D Sodium 140 Potassium 4.2 Chloride 104 Carbon Dioxide 27 Anion Gap 9 BUN 13 D Creatinine 0.8 Creat Clearance w eGFR > 60 Random Glucose 86 Calcium 8.7 Total Bilirubin 0.5 D AST 12 L ALT 22 D Alkaline Phosphatase 59 Total Protein 7.1 Albumin 4.1 Urine Color Yellow Urine Appearance Clear Urine pH 5.0 Ur Specific [place] 1.029 Urine Protein Negative Urine Glucose (UA) Negative Urine Ketones Trace H Urine Blood Negative Urine Nitrite Negative Urine Bilirubin Negative Urine Urobilinogen 2.0 Ur Leukocyte Esterase Negative RPR Titer 06/02/17 07:30 WBC RBC Hgb Hct MCV MCH MCHC RDW Plt Count MPV Sodium Potassium Chloride Carbon Dioxide Anion Gap BUN Creatinine Creat Clearance w eGFR Random Glucose Calcium Total Bilirubin AST ALT Alkaline Phosphatase Total Protein Albumin Urine Color Urine Appearance Urine pH Ur Specific [place] Urine Protein Urine Glucose (UA) Urine Ketones Urine Blood Urine Nitrite Urine Bilirubin Urine Urobilinogen Ur Leukocyte Esterase RPR Titer Nonreactive Pertinent Admission Physical Exam Findings: withdrawal sx - Medication Discharge Medications: Ambulatory Orders Carbamazepine [Tegretol -] 200 mg PO DAILY 03/13/17 Benztropine Mesylate [Cogentin -] 1 mg PO DAILY #30 mg 01/07/18 - Diagnosis (1) Alcohol dependence with uncomplicated withdrawal Current Visit: Yes Status: Acute (2) Cannabis dependence, uncomplicated Current Visit: Yes Status: Acute (3) Cocaine dependence, uncomplicated Current Visit: No Status: Acute (4) Nausea & vomiting Current Visit: Yes Status: Acute Qualifiers: Vomiting type: unspecified Vomiting Intractability: unspecified Qualified Code(s): R11.2 - Nausea with vomiting, unspecified (5) Nicotine dependence Current Visit: Yes Status: Acute Qualifiers: Nicotine product type: cigarettes Substance use status: in withdrawal Qualified Code(s): F17.213 - Nicotine dependence, cigarettes, with withdrawal (6) Opioid dependence with withdrawal Current Visit: No Status: Chronic (7) Paranoid schizophrenia Current Visit: Yes Status: Chronic (8) PCP (phencyclidine) abuse Current Visit: Yes Status: Chronic (9) Psychiatric disorder Current Visit: Yes Status: Suspected (10) Schizophrenia Current Visit: No Status: Chronic Qualifiers: Schizophrenia type: unspecified Qualified Code(s): F20.9 - Schizophrenia, unspecified (11) Substance induced mood disorder Current Visit: Yes Status: Acute (12) Substance-induced sleep disorder Current Visit: No Status: Acute (13) Syncope Current Visit: No Status: Acute Qualifiers: Syncope type: unspecified Qualified Code(s): R55 - Syncope and collapse - AMA Did Patient Leave Against Medical Advice: Yes
[2017-06-04] MEDS ORDERED: chlordiazePOXIDE HCL 10 MG CAPSULE PO SCH (23:00)
== END 2017-06-04 17:28 | disposition left against medical advice (07) | DRG 770 ==
LOC: YASAS 19:04 → Y3N 23:04
PROVIDERS: ADMIT Internal Medicine; ATTEND Internal Medicine
PROC: HZ2ZZZZ Detoxification Services for Substance Abuse Treatment (ICD-10-PCS; principal; 2017-06-01)
DX: F11.23 Opioid dependence with withdrawal (principal); F10.230 Alcohol dependence with withdrawal, uncomplicated; F14.20 Cocaine dependence, uncomplicated; F12.20 Cannabis dependence, uncomplicated; F16.10 Hallucinogen abuse, uncomplicated; F17.213 Nicotine dependence, cigarettes, with withdrawal; F20.0 Paranoid schizophrenia; F19.24 Other psychoactive substance dependence with psychoactive substance-induced mood disorder; F19.282 Other psychoactive substance dependence with psychoactive substance-induced sleep disorder; F41.9 Anxiety disorder, unspecified; G47.00 Insomnia, unspecified; R11.2 Nausea with vomiting, unspecified; Z86.79 Personal history of other diseases of the circulatory system; Z91.5 Personal history of self-harm
CPT/HCPCS: 36415; 80053; 81003; 85027; 86593; 93005; 93010